=== PATIENT | female | born 2005 | race Caucasian/White ===

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

== ENCOUNTER → 2025-01-10 | Outpatient (CLI) | payer OTHER, SELFPAY ==
[2025-01-13 01:07] LABS: Calprotectin, Stool 44 ug/g (0-120); Fats, Neutral Normal (.); Fats, Total Increased (.)
[2025-01-13 13:08] LABS: Pancreatic Elastase, Fecal 797 (>200)
== END | disposition home or self-care (01) ==
LOC: LABSPEC 13:07
PROVIDERS: Referring Provider Internal Medicine Gastroenterology; Visit Provider Internal Medicine Gastroenterology
DX: R19.7 Diarrhea, unspecified (principal); K58.9 Irritable bowel syndrome, unspecified
CPT/HCPCS: 82274; 82653; 82705; 83630; 83993; 87177; 87209; 87329; 87506

== ENCOUNTER → 2025-01-18 | Outpatient (CLI) | payer OTHER, SELFPAY ==
--- NOTE | 2025-01-18 12:56 | NM_ITS ---
PROCEDURE: GASTRIC EMPTYING STUDY 01/18/2025 REASON FOR EXAM: DIARRHEA AND BLOATING TECHNIQUE: The patient ingested a standard meal of oatmeal, sulfur colloid and water. There was no vomiting postprandially. Anterior and posterior planar images of the upper abdomen were obtained for 1 minute immediately following the meal at 1h, 2h and 4h if more than 10% of the activity persisted within the stomach. Regions of interest were drawn, and a geometric mean was used to calculate a [id number]. RADIOPHARMACEUTICAL: Sulfur colloid DOSE 1.1mCi FINDINGS: Percent activity remaining in stomach: 1 hour 35 % (normal 37-90%) NM/Gastric Emptying Study IMPRESSION: Normal gastric emptying. Reading Location: [facility]
--- NOTE | 2025-01-18 12:56 | NM_ITS ---
PROCEDURE: GASTRIC EMPTYING STUDY 01/18/2025 REASON FOR EXAM: DIARRHEA AND BLOATING TECHNIQUE: The patient ingested a standard meal of oatmeal, sulfur colloid and water. There was no vomiting postprandially. Anterior and posterior planar images of the upper abdomen were obtained for 1 minute immediately following the meal at 1h, 2h and 4h if more than 10% of the activity persisted within the stomach. Regions of interest were drawn, and a geometric mean was used to calculate a [id number]. RADIOPHARMACEUTICAL: Sulfur colloid DOSE 1.1mCi FINDINGS: Percent activity remaining in stomach: 1 hour 35 % (normal 37-90%) NM/Gastric Emptying Study IMPRESSION: Normal gastric emptying. Reading Location: [facility]
--- OUTSIDE RECORDS SUMMARY | 2025-01-18 21:31 | XMS RPT_ITS | CCD ---
Author Organization [facility] Care Team Providers Care Vehicle Modification Technician Name Role Phone Friend Dr. Dennis BECKFORD Attending Provider Care Physician, No Primary Primary Care Provider Unavailable Friend Dr. Dennis BECKFORD Referring Provider Friend, Dennis Attending Unavailable Care Physician, No Primary Primary Care Unava ilable Friend, Dennis Referring Unavailable Friend, Dennis Attending Unavailable Care Physician, No Primary Primary Care Unava ilable Friend, Dennis Referring Unavailable Friend, Dennis Attending Unavailable Allergies Allergy Classification Reported Allergen(s) Allergy Type Date of Onset Reaction(s) Facility (2 sources) avocado allergenic extract Drug Allergy 12-30-[address] [facility] (2 sources) Sulfamethoxazole Drug Allergy 12-30-19 [facility] (2 sources) Sulfonamides (Antibiotic) Propensity to adverse reactions 12-30-19 [facility] (2 sources) Trimethoprim Drug Allergy 12-30-19 [facility] (3 sources) cat dander; Translations: [cat dander] Propensity to adverse reactions 12-30-[address] [facility] (3 sources) Environmental Allergies: Uncoded; Translations: [Environmental Allergies: Uncoded] Propensity to adverse reactions 12-30-[address] [facility] (1 source) avocado oil Drug Allergy 12-30-[address] [facility] (1 source) Sulfamethoxazole Drug Allergy 12-30-[address] [facility] (1 source) Sulfonamides (Antibiotic) Drug allergy (disorder) 12-30-[address] [facility] (1 source) Trimethoprim Drug Allergy 12-30-[address] [facility] Medications Current Medications Medication Drug Class(es) Dates Sig (Normalized) Sig (Original) atomoxetine 18 mg oral capsule (2 sources) Norepinephrine Reuptake Inhibitor Start: 12-29-2024 take 1 capsule by mouth once daily Atomoxetine (Strattera) 18 mg capsule Active 18 mg PO daily December 29, 2024 12:00am control (2 sources) Start: 12-29-2024 control Active PO December 29, 2024 12:00am busPIRone hydrochloride 15 mg oral tablet (2 sources) Start: 12-29-2024 take 1 tablet by mouth once daily Buspirone 15 mg tablet Active 15 mg PO DAILY December 29, 2024 12:00am cloNIDine hydrochloride 0.2 mg oral tablet (2 sources) Central alpha-2 Adrenergic Agonist Start: 12-29-2024 take 1 tablet by mouth twice daily Clonidine Hcl 0.2 mg tablet Active 0.2 mg PO TWICE A DAY December 29, 2024 12:00am 24 hr levomilnacipran 120 mg extended release oral capsule (2 sources) Serotonin and Norepinephrine Reuptake Inhibitor Start: 12-29-2024 take 1 capsule by mouth once daily Levomilnacipran (Fetzima) 120 mg capsule,extended release 24 hr Active 120 mg PO daily December 29, 2024 12:00am melatonin 10 mg oral capsule (2 sources) Start: 12-29-2024 take 1 capsule by mouth at bedtime Melatonin 10 mg capsule Active 10 mg PO BEDTIME December 29, 2024 12:00am metFORMIN hydrochloride 500 mg oral tablet (2 sources) Biguanide Start: 12-29-2024 take 1 tablet by mouth four times daily Metformin 500 mg tablet Active 500 mg PO .QID December 29, 2024 12:00am spironolactone 100 mg oral tablet (2 sources) Aldosterone Antagonist Start: 12-29-2024 take 1 tablet by mouth once daily Spironolactone 100 mg tablet Active 100 mg PO daily December 29, 2024 12:00am Problems Problem Classification Problem Date Documented Da te Episodic/Chronic Other gastrointestinal disorders (4 sources) Diarrhea; Translations: [Diarrhea, unspecified] 12-29-2024 Episodic Other gastrointestinal disorders (1 source) Diarrhea, unspecified; Translations: [Diarrhea, unspecified] Onset: 01-13-2025 Episodic Results Test Name Value Interpretation Reference Range Facility Calprotectin, Stoolon [address] 44 ug/g Normal 0-[address] [facility] Comment on above: Order Comment: Test( s) [id number], Neutral; [id number]-Bksp, Total was developed and its performance characteristics determined by [facility]. It has not been cleared or approved by the Food and Drug Administration. Result Comment: Conc entration Interpretation Follow-Up < 5 - 50 ug/g Normal None >50 -120 ug/g Borderline Re-evaluate in 4-6 weeks >120 ug/g Abnormal Repeat as clinically indicated Performed at: [facility] [address] [id number] Operations Supervisor 2Nd Shift: Johnnie Brown PhD, Phone: [phone] Performed at: [facility] Lab[address] [id number] Operations Supervisor 2Nd Shift: Joslyn Sahu MD, Phone: [phone] Performed By: #### L 7000.0750, M100.0605, L7000.0300, L7000.0700, M100.7900, M100.637 #### [facility] [address] [place], [place], [id number] Fecal Fat, Qualitativeon FATS, NEUTRAL Normal Normal . [facility] Comment on above: Order Comment: Test( s) [id number]-Zxbe, Neutral; 192452-Twjz, Total was developed and its performance characteristics determined by [facility]. It has not been cleared or approved by the Food and Drug Administration. Result Comment: Norm al (<60 Droplets/HPF) Performed By: #### L 7000.0750, M100.0605, L7000.0300, L7000.0700, M100.7900, M100.637 #### [facility] [address] [place], [place], [address] FATS, TOTAL Increased Normal . [facility] Comment on above: Order Comment: Test( s) [id number]-Rtvc, Neutral; 307180-Xoxn, Total was developed and its performance characteristics determined by [facility]. It has not been cleared or approved by the Food and Drug Administration. Result Comment: Norm al (<100 Droplets/HPF) Performed By: #### L 7000.0750, M100.0605, L7000.0300, L7000.0700, M100.7900, M100.637 #### [facility] [address] [place], [place], [id number] [phone] L7000.0750on 01-13-2025 P ELASTASE,FECA 797 Normal >[address] [facility] Comment on above: Result Comment: Resu lt Units: ug Elast./g Severe Pancreatic Insufficiency: <100 Moderate Pancreatic Insufficiency: 100 - 200 Normal: >200 Performed at: - [address] [id number] Operations Supervisor 2Nd Shift: Joslyn Sahu MD, Phone: [phone] Performed By: #### L 7000.0750, M100.0605, L7000.0300, L7000.0700, M100.7900, M100.637 #### [facility] [address] [place], [place], [id number] ANCAon 01-10-2025 Atypical pANCA <1:20 Normal Neg:<1:[address] [facility] Comment on above: Result Comment: The atypical pANCA pattern has been observed in a significant percentage of patients with ulcerative colitis, primary sclerosing cholangitis and autoimmune hepatitis. Performed By: #### L 7000.0750, M100.0605, L7000.0300, L7000.0700, M100.7900, M100.637 #### [facility] [address] [place], [place], [id number] Cytoplasmic Ab <1:20 Normal Neg:<1:[address] [facility] Comment on above: Performed By: #### L 7000.0750, M100.0605, L7000.0300, L7000.0700, M100.7900, M100.637 #### [facility] [address] [place], [place], [id number] Perinuclear Ab. <1:20 Normal Neg:<1:[address] [facility] Comment on above: Result Comment: The presence of positive fluorescence exhibiting P-ANCA or C-ANCA patterns alone is not specific for the diagnosis of Marie's Granulomatosis (WG) or microscopic polyangiitis. Decisions about treatment should not be based solely on ANCA IFA results. The International ANCA Group Consensus recommends follow up testing of positive sera with both KS- 3 and MPO-ANCA enzyme immunoassays. As many as 5% serum samples are positive only by EIA. Ref. AM J Clin Pathol 1999;111:507-513. Performed By: #### L 7000.0750, M100.0605, L7000.0300, L7000.0700, M100.7900, M100.637 #### [facility] [address] [place], [address] Angiotensin Convert Enzymeon 01-10-2025 ANGIOT-CONV.ENZ 34 U/L Normal 14-[address] [facility] Comment on above: Result Comment: Perf ormed at: - [facility] [address] [id number] Operations Supervisor 2Nd Shift: Johnnie Brown PhD, Phone: [phone] Performed at: - [facility] [address] [id number] Operations Supervisor 2Nd Shift: Joslyn Sahu MD, Phone: [phone] Performed By: #### L 7000.0750, M100.0605, L7000.0300, L7000.0700, M100.7900, M100.637 #### [facility] [address] [place], [address] Anti-Smooth Muscle ABSon ANTISMOOTH MUSC 5 Units Normal 0-[address] [facility] Comment on above: Result Comment: Nega tive 0 - 19 Weak positive 20 - 30 Moderate to strong positive >30 Actin Antibodies are found in 52-85% of patients with autoimmune hepatitis or chronic active hepatitis and in 22% of patients with primary biliary cirrhosis. Performed By: #### L 7000.0750, M100.0605, L7000.0300, L7000.0700, M100.7900, M100.637 #### [facility] [address] [place], [address] Calprotectin stoolOrdered By : Dennis Mcneil on 01-10-2025 Calprotectin stool 44 ug/g 0-120 [facility] Comment on above: Concentration Interp retation Follow-Up< 5 - 50 ug/g Normal None>50 -120 ug/g Borderline Re-evaluate in 4-6 weeks >120 ug/g Abnormal Repeat as clinically indicatedPerformed at: - [facility] [address] [id number] Director: Johnnie Brown PhD, Phone: [phone] at: [facility] [employer] [id number] Director: Joslyn Sahu MD, Phone: [phone] Celiac Disease Profileon ENDOMYSIAL IGA Negative Normal Negative [facility] Comment on above: Performed By: #### L 7000.0750, M100.0605, L7000.0300, L7000.0700, M100.7900, M100.637 #### [facility] [address] [place], [place], [id number] tTG IGA <2 Normal 0-[address] [facility] Comment on above: Result Comment: Nega tive 0 - 3 Weak Positive 4 - 10 Positive >10 Tissue Transglutaminase (tTG) has been identified as the endomysial antigen. Studies have demonstr- ated that endomysial IgA antibodies have over 99% specificity for gluten sensitive enteropathy. Performed By: #### L 7000.0750, M100.0605, L7000.0300, L7000.0700, M100.7900, M100.637 #### [facility] [address] [place], [place], [id number] ENTERIC PATHOGEN PANEL STOOL on 01-10-2025 EP PANEL Normal Reference Ran ge = Not Detected Nucleic acid amplification test method Not detected for Campylobacter group, Salmonella species, Shigella species, Vibrio Group, Yersinia enterocolitica, EHEC (Shiga Toxin 1, Shiga Toxin 2), Norovirus Gl/Gll, and Rotavirus A. Other common stool pathogens are not detected on this panel include: Aeromonas/Plesiomonas or parasites. Order testing for these organisms separately if suspected. This is an amplified DNA test which makes it both specific and sensitive. CAMPYLOBACTER Not Detected Norovirus Not Detected Rotavirus Not Detected Salmonella Not Detected Shiga Toxin Not Detected Shigella sp. Not Detected VIBRIO Not Detected Yersinia Not Detected Normal [facility] Comment on above: Performed By: #### L 7000.0750, M100.0605, L7000.0300, L7000.0700, M100.7900, M100.637 #### [facility] [address] [place], [address] Fecal fat detectionOrdered B y: Dennis Friend on 01-10-2025 Fat Ql (Stl) Increased . [facility] Comment on above: Normal (<100 Droplet s/HPF) Gastrin, Serumon 01-10-2025 GASTRIN 18 pg/mL Normal 0-[address] [facility] Comment on above: Result Comment: Siem [facility] Immulite 2000 Immunochemiluminometric assay (ICMA) Values obtained with different assay methods or kits cannot be used interchangeably. Results cannot be interpreted as absolute evidence of the presence or absence of malignant disease. Performed By: #### L 7000.0750, M100.0605, L7000.0300, L7000.0700, M100.7900, M100.637 #### [facility] [address] [place], [address] STEPHANIE + Protein Elect, Serumon 01-10-2025 Albumin [Mass/Vol] 3.4 g/dL Normal 2.9-4.4 [facility] Comment on above: Order Comment: N Performed By: #### L 7000.0750, M100.0605, L7000.0300, L7000.0700, M100.7900, M100.637 #### [facility] [address] [place], [address] Albumin/Globulin [Mass ratio] 0.9 {ratio} Normal 0.7-1.[address] [facility] Comment on above: Order Comment: N Performed By: #### L 7000.0750, M100.0605, L7000.0300, L7000.0700, M100.7900, M100.637 #### [facility] [address] [place], [address] VWQPB-1-FBWM 0.4 g/dL Normal 0.0-0.[address] [facility] Comment on above: Order Comment: N Performed By: #### L 7000.0750, M100.0605, L7000.0300, L7000.0700, M100.7900, M100.637 #### [facility] [address] [place], [address] HVDDL-7-YHVP 1.1 g/dL High 0.4-1.[address] [facility] Comment on above: Order Comment: N Performed By: #### L 7000.0750, M100.0605, L7000.0300, L7000.0700, M100.7900, M100.637 #### [facility] [address] [place], [address] BETA GLOBULIN 1.5 g/dL High 0.7-1.[address] [facility] Comment on above: Order Comment: N Performed By: #### L 7000.0750, M100.0605, L7000.0300, L7000.0700, M100.7900, M100.637 #### [facility] [address] [place], [address] GAMMA GLOBULIN 1.2 g/dL Normal 0.4-1.[address] [facility] Comment on above: Order Comment: N Performed By: #### L 7000.0750, M100.0605, L7000.0300, L7000.0700, M100.7900, M100.637 #### [facility] [address] [place], [address] Globulin (S) [Mass/Vol] 4.2 g/dL Abnormal 2.2-3.9 [facility] Comment on above: Order Comment: N Performed By: #### L 7000.0750, M100.0605, L7000.0300, L7000.0700, M100.7900, M100.637 #### [facility] [address] [place], [address] STEPHANIE RESULT,S Comment Normal . [facility] Comment on above: Order Comment: N Result Comment: No m onoclonality detected. Performed By: #### L 7000.0750, M100.0605, L7000.0300, L7000.0700, M100.7900, M100.637 #### [facility] [address] [place], [address] IMMUNOGLOB A QN 87 mg/dL Normal 87-[address] [facility] Comment on above: Order Comment: N Performed By: #### L 7000.0750, M100.0605, L7000.0300, L7000.0700, M100.7900, M100.637 #### [facility] [address] [place], [address] IMMUNOGLOB G QN 1231 mg/dL Normal 719-[address] [facility] Comment on above: Order Comment: N Performed By: #### L 7000.0750, M100.0605, L7000.0300, L7000.0700, M100.7900, M100.637 #### [facility] [address] [place], [address] IMMUNOGLOB M QN 52 mg/dL Low 58-[address] [facility] Comment on above: Order Comment: N Performed By: #### L 7000.0750, M100.0605, L7000.0300, L7000.0700, M100.7900, M100.637 #### [facility] [address] [place], [address] M-Matthew Not Observed Normal Not Observed [facility] Comment on above: Order Comment: N Performed By: #### L 7000.0750, M100.0605, L7000.0300, L7000.0700, M100.7900, M100.637 #### [facility] [address] [place], [address] NOTE: Comment Normal . [facility] Comment on above: Order Comment: N Result Comment: Prot ein electrophoresis scan will follow via computer, mail, or deputy commissioner delivery. Performed By: #### L 7000.0750, M100.0605, L7000.0300, L7000.0700, M100.7900, M100.637 #### [facility] [address] [place], [address] Protein [Mass/Vol] 7.6 g/dL Normal 6.0-8.5 [facility] Comment on above: Order Comment: N Performed By: #### L 7000.0750, M100.0605, L7000.0300, L7000.0700, M100.7900, M100.637 #### [facility] [address] [place], [address] Immunoglobulins G/A/M/Jose IMMUNOGLOB E QN 329 IU/mL Normal 6-[address] [facility] Comment on above: Order Comment: N Performed By: #### L 7000.0750, M100.0605, L7000.0300, L7000.0700, M100.7900, M100.637 #### [facility] [address] [place], [address] L2100.0000on 01-10-2025 ACCA 6 units Normal 0-[address] [facility] Comment on above: Result Comment: Nega tive: <80 Equivocal: 80-90 Positive: >90 Performed By: #### L 7000.0750, M100.0605, L7000.0300, L7000.0700, M100.7900, M100.637 #### [facility] [address] [place], [address] ALCA 17 units Normal 0-[address] [facility] Comment on above: Result Comment: Nega tive:<55 Equivocal: 55-60 Positive: >60 Performed By: #### L 7000.0750, M100.0605, L7000.0300, L7000.0700, M100.7900, M100.637 #### [facility] [address] [place], [address] AMCA 32 units Normal 0-[address] [facility] Comment on above: Result Comment: Nega tive: <90 Equivocal: 90-100 Positive: >100 This test was developed and its performance characteristics determined by [facility]. It has not been cleared or approved by the Food and Drug Administration. The FDA has determined that such clearance or approval is not necessary. Performed By: #### L 7000.0750, M100.0605, L7000.0300, L7000.0700, M100.7900, M100.637 #### [facility] [address] [place], [place], [address] Atypical pANCA Negative Normal Negative [facility] Comment on above: Performed By: #### L 7000.0750, M100.0605, L7000.0300, L7000.0700, M100.7900, M100.637 #### [facility] [address] [place], [place], [address] COMMENT Comment Normal . [facility] Comment on above: Result Comment: Abigail susanne is not suggestive of Inflammatory Bowel Disease Performed By: #### L 7000.0750, M100.0605, L7000.0300, L7000.0700, M100.7900, M100.637 #### [facility] [address] [place], [address] Rebeca 7 units Normal 0-[address] [facility] Comment on above: Result Comment: Nega tive: <45 Equivocal: 45-50 Positive: >50 Performed By: #### L 7000.0750, M100.0605, L7000.0300, L7000.0700, M100.7900, M100.637 #### [facility] [address] [place], [address] No Panel InformationOrdered By: Dennis Mcneil on 01-10-2025 Stool Neutral Fats Normal . [facility] Comment on above: Normal (<60 Droplets /HPF) Quantiferon TB-Gold+on 01-10 QFT MITOGEN OCHOA > 10.[address] [facility] Comment on above: Performed By: #### L 7000.0750, M100.0605, L7000.0300, L7000.0700, M100.7900, M100.637 #### [facility] [address] [place], [address] QFT NIL VALUE 0.03 IU/mL Normal . [facility] Comment on above: Performed By: #### L 7000.0750, M100.0605, L7000.0300, L7000.0700, M100.7900, M100.637 #### [facility] [address] [place], [address] QFT TB GOLD+ Comment Normal . [facility] Comment on above: Result Comment: Jeremiah tiFERON-TB Gold Plus is a qualitative indirect test for M tuberculosis infection (including disease) and is intended for use in conjunction with risk assessment, radiography, and other medical and diagnostic evaluations. The QuantiFERON-TB Gold Plus result is determined by subtracting the Nil value from either TB antigen (Ag) value. The Mitogen tube serves as a control for the test. Performed By: #### L 7000.0750, M100.0605, L7000.0300, L7000.0700, M100.7900, M100.637 #### [facility] [address] [place], [address] QFT TB POS CRIT Negative Normal Negative [facility] Comment on above: Result Comment: No r esponse to M tuberculosis antigens detected. Infection with M tuberculosis is unlikely, but high risk individuals should be considered for additional testing (ATS/IDSA/CDC Clinical Practice Guidelines, 2017). The reference range is an Antigen minus Nil result of <0.35 IU/mL. The specimen received for QuantiFERON testing was incubated by the ordering institution. Specific procedures outlined in our Directory of Services and in the package insert for the QuantiFERON Gold (In Tube) test must be followed to enable for proper stimulation of cells for the production of interferon gamma. Chemiluminescence immunoassay methodology Performed By: #### L 7000.0750, M100.0605, L7000.0300, L7000.0700, M100.7900, M100.637 #### [facility] [address] [place], [address] QFT TB1+ AG OCHOA 0.03 IU/mL Normal . [facility] Comment on above: Performed By: #### L 7000.0750, M100.0605, L7000.0300, L7000.0700, M100.7900, M100.637 #### [facility] [address] [place], [address] QFT TB2+ AG OCHOA 0.02 IU/mL Normal . [facility] Comment on above: Performed By: #### L 7000.0750, M100.0605, L7000.0300, L7000.0700, M100.7900, M100.637 #### [facility] [address] [place], [place], [address] Stool Lactoferrin/WBCon 07-0 WBCST Normal Reference Ran ge = Negative Fecal WBC Lactoferrin Negative: No Fecal WBC Lactoferrin present Normal [facility] Comment on above: Performed By: #### L 7000.0750, M100.0605, L7000.0300, L7000.0700, M100.7900, M100.637 #### [facility] [address] [place], [address] Stool Occult Blood iFOBon STOB Negative Normal [facility] Comment on above: Performed By: #### L 7000.0750, M100.0605, L7000.0300, L7000.0700, M100.7900, M100.637 #### [facility] [address] [place], [address] Stool gastrointestinal hemog lobin detection by immunologic methodOrdered By: Dennis Mcneil on 01-10-2025 Lower GI hemoglobin IA Ql (Stl) [facility] Stool lactoferrin detection by immunoassayOrdered By: Dennis Mcneil on 01-10-2025 Lactoferrin IA Ql (Stl) [facility] Stool pancreatic elastase me asurement (mass/mass)Ordered By: Dennis Mcneil on 01-10-2025 Elastase.pancreatic (Stl) [Mass/Mass] 797 >[address] [facility] Comment on above: Result Units: ug Milli st./g Severe Pancreatic Insufficiency: <100 Moderate Pancreatic Insufficiency: 100 - 200 Normal: >200Performed at: BN - [facility] [address] [id number] Director: Joslyn Sahu MD, Phone: [phone] MARY Comprehensive Panelon ANTI-DNA (DS)AB 1 IU/mL Normal 0-[address] [facility] Comment on above: Result Comment: Nega tive <5 Equivocal 5 - 9 Positive >9 Performed By: #### L 101.9900, L5500.0410, L3300.1800, L501.6710, L3100.3425, L3400.8000, L503.6150, L501.9985, L503.6550, L3300.1200, L3200.1100, L100.0100, L504.2610, L3410.2400, L803.2200, L500.4050, L2100.0000, L501.9520, L3100.5440, L3100.6900 #### [facility] [address] [place], [place], [id number] ANTI-SS-A < 0.2 Normal 0.0-0.[address] [facility] Comment on above: Performed By: #### L 101.9900, L5500.0410, L3300.1800, L501.6710, L3100.3425, L3400.8000, L503.6150, L501.9985, L503.6550, L3300.1200, L3200.1100, L100.0100, L504.2610, L3410.2400, L803.2200, L500.4050, L2100.0000, L501.9520, L3100.5440, L3100.6900 #### [facility] [address] [place], [address] ANTI-SS-B < 0.2 Normal 0.0-0.[address] [facility] Comment on above: Performed By: #### L 101.9900, L5500.0410, L3300.1800, L501.6710, L3100.3425, L3400.8000, L503.6150, L501.9985, L503.6550, L3300.1200, L3200.1100, L100.0100, L504.2610, L3410.2400, L803.2200, L500.4050, L2100.0000, L501.9520, L3100.5440, L3100.6900 #### [facility] [address] [place], [place], [id number] Allergen, Food Profileon CLAM <0.10 Normal Class [address] [facility] Comment on above: Performed By: #### L 7000.0750, M100.0605, L7000.0300, L7000.0700, M100.7900, M100.637 #### [facility] [address] [place], [place], [address] CODFISH <0.10 Normal Class [address] [facility] Comment on above: Performed By: #### L 7000.0750, M100.0605, L7000.0300, L7000.0700, M100.7900, M100.637 #### [facility] [address] [place], [place], [id number] COMMENT Comment Normal . [facility] Comment on above: Result Comment: Kristofer bush of Specific IgE Class Description of Class ----- < 0.10 0 Negative 0.10 - 0.31 0/I Equivocal/Low 0.32 - 0.55 I Low 0.56 - 1.40 II Moderate 1.41 - 3.90 III High 3.91 - 19.00 IV Very High 19.01 - 100.00 V Very High >100.00 Very High Performed By: #### L 7000.0750, M100.0605, L7000.0300, L7000.0700, M100.7900, M100.637 #### [facility] [address] [place], [place], [id number] CORN <0.10 Normal Class [address] [facility] Comment on above: Performed By: #### L 7000.0750, M100.0605, L7000.0300, L7000.0700, M100.7900, M100.637 #### [facility] [address] [place], [address] EGG, WHITE <0.10 Normal Class [address] [facility] Comment on above: Performed By: #### L 7000.0750, M100.0605, L7000.0300, L7000.0700, M100.7900, M100.637 #### [facility] [address] [place], [place], [id number] MILK (COW) <0.10 Normal Class [address] [facility] Comment on above: Performed By: #### L 7000.0750, M100.0605, L7000.0300, L7000.0700, M100.7900, M100.637 #### [facility] [address] [place], [place], [id number] PEANUT 0.16 kU/L Abnormal Class 0/I [facility] Comment on above: Performed By: #### L 7000.0750, M100.0605, L7000.0300, L7000.0700, M100.7900, M100.637 #### [facility] [address] [place], [place], [id number] SCALLOP <0.10 Normal Class [address] [facility] Comment on above: Performed By: #### L 7000.0750, M100.0605, L7000.0300, L7000.0700, M100.7900, M100.637 #### [facility] [address] [place], [place], [id number] SESAME SEED <0.10 Normal Class [address] [facility] Comment on above: Result Comment: Perf ormed at: [facility] [address] [id number] Operations Supervisor 2Nd Shift: Johnnie Brown PhD, Phone: [phone] Performed at: [facility] [address] [id number] Operations Supervisor 2Nd Shift: Joslyn Sahu MD, Phone: [phone] Performed By: #### L 7000.0750, M100.0605, L7000.0300, L7000.0700, M100.7900, M100.637 #### [facility] [address] [place], [place], [id number] SHRIMP <0.10 Normal Class [address] [facility] Comment on above: Performed By: #### L 7000.0750, M100.0605, L7000.0300, L7000.0700, M100.7900, M100.637 #### [facility] [address] [place], [place], [id number] SOYBEAN <0.10 Normal Class [address] [facility] Comment on above: Performed By: #### L 7000.0750, M100.0605, L7000.0300, L7000.0700, M100.7900, M100.637 #### [facility] [address] [place], [place], [id number] WALNUT,(Food) <0.10 Normal Class [address] [facility] Comment on above: Performed By: #### L 7000.0750, M100.0605, L7000.0300, L7000.0700, M100.7900, M100.637 #### [facility] [address] [place], [address] WHEAT <0.10 Normal Class [address] [facility] Comment on above: Performed By: #### L 7000.0750, M100.0605, L7000.0300, L7000.0700, M100.7900, M100.637 #### [facility] [address] [place], [place], [id number] Absolute lymphocyte countOrd ered By: Dennis Mcneil on 12-29-2024 Lymphocytes Auto (Unsp spec) [#/Vol] 4.51 10*3/uL 0.83-4.[address] [facility] Absolute neutrophil countOrd ered By: Dennis Mcneil on 12-29-2024 Neutrophils (Bld) [#/Vol] 9.3 10*3/uL High 2.0-7.[address] [facility] Albumin Elph [Mass/Vol]Order ed By: Dennis Mcneil on 12-29-2024 Albumin [Mass/Vol] 3.4 g/dL 2.9-4.4 [facility] Anion gap in Serum or Plasma Ordered By: Dennis Mcneil on 12-29-2024 Anion gap [Moles/Vol] 15 mmol/L 5- [facility] Automated lymphocyte count a s percentage of total leukocytesOrdered By: Dennis Mcneil on 12-29-2024 Lymphocytes/100 WBC Auto (Unsp spec) 30.9 % - [facility] BUN/creatinine ratioOrdered By: Dennissarah Mcneil on 12-29-2024 Urea nitrogen/Creatinine [Mass ratio] 15.5 mg/mg 10- [facility] Basophil percentageOrdered B y: Dennis Mcneil on 12-29-2024 Basophils/100 WBC (Bld) 0.3 % 0-1 [facility] Bilirubin, totalOrdered By: Dennisfranklin Mcneil on 12-29-2024 Bilirubin [Mass/Vol] 0.32 mg/dL 0.00-1.30 [facility] CBC W/Diff, Automatedon 12-06 ATYPICAL LYMPH 1+ Normal [facility] Comment on above: Performed By: #### L 101.9900, L5500.0410, L3300.1800, L501.6710, L3100.3425, L3400.8000, L503.6150, L501.9985, L503.6550, L3300.1200, L3200.1100, L100.0100, L504.2610, L3410.2400, L803.2200, L500.4050, L2100.0000, L501.9520, L3100.5440, L3100.6900 #### [facility] [address] [place], [address] PLT EST SLT INC Normal ADEQ [facility] Comment on above: Performed By: #### L 101.9900, L5500.0410, L3300.1800, L501.6710, L3100.3425, L3400.8000, L503.6150, L501.9985, L503.6550, L3300.1200, L3200.1100, L100.0100, L504.2610, L3410.2400, L803.2200, L500.4050, L2100.0000, L501.9520, L3100.5440, L3100.6900 #### [facility] [address] [place], [address] CRPon 12-29-2024 C-REACTIVE PROT 34.60 mg/L High 0.0-3.[address] [facility] Comment on above: Performed By: #### L 7000.0750, M100.0605, L7000.0300, L7000.0700, M100.7900, M100.637 #### [facility] [address] [facility] [address] [place], [place], [id number] Carbon dioxide, total [Moles /volume] in Central venous bloodOrdered By: Dennis Mcneil on 12-29-2024 CO2 [Moles/Vol] 20.3 mmol/L Low 21.0-32.[address] [facility] Chitobioside IgA antibody as sayOrdered By: Dennis Mcneil on 12-29-2024 Chitobioside IgA IA Qn 6 units 0-90 [facility] Comment on above: Negative: <80 Equivo padma: 80-90 Positive: >90 Chloride assayOrdered By: Ra franklin Mcneil on 12-29-2024 Chloride [Moles/Vol] 101 mmol/L 98-108 [facility] Comprehensive Metabolic Prof ilon 12-29-2024 Albumin [Mass/Vol] 4.2 g/dL Normal 3.5-5.0 [facility] Comment on above: Performed By: #### L 7000.0750, M100.0605, L7000.0300, L7000.0700, M100.7900, M100.637 #### [facility] [address] [place], [address] Albumin/Globulin [Mass ratio] 1.1 {ratio} Normal 0.9-2.[address] [facility] Comment on above: Performed By: #### L 7000.0750, M100.0605, L7000.0300, L7000.0700, M100.7900, M100.637 #### [facility] [address] [place], [address] ALK PHOS 172 U/L High 35-[address] [facility] Comment on above: Performed By: #### L 7000.0750, M100.0605, L7000.0300, L7000.0700, M100.7900, M100.637 #### [facility] [address] [place], [address] ALT [Catalytic activity/Vol] 13 U/L Normal <=[address] [facility] Comment on above: Performed By: #### L 7000.0750, M100.0605, L7000.0300, L7000.0700, M100.7900, M100.637 #### [facility] [address] [place], [address] AST [Catalytic activity/Vol] 18 U/L Normal <=[address] [facility] Comment on above: Performed By: #### L 7000.0750, M100.0605, L7000.0300, L7000.0700, M100.7900, M100.637 #### [facility] [address] [place], [address] Bilirubin [Mass/Vol] 0.32 mg/dL Normal 0.00-1.30 [facility] Comment on above: Performed By: #### L 7000.0750, M100.0605, L7000.0300, L7000.0700, M100.7900, M100.637 #### [facility] [address] [place], [address] BUN/CRE 15.5 RATIO Normal 10-[address] [facility] Comment on above: Performed By: #### L 7000.0750, M100.0605, L7000.0300, L7000.0700, M100.7900, M100.637 #### [facility] [address] [place], [address] Calcium [Mass/Vol] 10.0 mg/dL Normal 7.6-11.0 [facility] Comment on above: Performed By: #### L 7000.0750, M100.0605, L7000.0300, L7000.0700, M100.7900, M100.637 #### [facility] [address] [place], [address] Chloride [Moles/Vol] 101 mmol/L Normal 98-108 [facility] Comment on above: Performed By: #### L 7000.0750, M100.0605, L7000.0300, L7000.0700, M100.7900, M100.637 #### [facility] [address] [place], [address] CO2 [Moles/Vol] 20.3 mmol/L Low 21.0-32.[address] [facility] Comment on above: Performed By: #### L 7000.0750, M100.0605, L7000.0300, L7000.0700, M100.7900, M100.637 #### [facility] [address] [place], [address] Creatinine [Mass/Vol] 0.87 mg/dL Normal 0.70-1.20 [facility] Comment on above: Performed By: #### L 7000.0750, M100.0605, L7000.0300, L7000.0700, M100.7900, M100.637 #### [facility] [address] [place], [address] GAP 15 Normal 5-[address] [facility] Comment on above: Performed By: #### L 7000.0750, M100.0605, L7000.0300, L7000.0700, M100.7900, M100.637 #### [facility] [address] [place], [address] GFR/1.73 sq M.predicted among non-blacks MDRD (S/P/Bld) [Vol rate/Area] 99 mL/min/{1.73_m2} Normal >60 [facility] Comment on above: Result Comment: mL/m in/1.73m2 CKD-EPI Creatinine Equation (2020) Performed By: #### L 7000.0750, M100.0605, L7000.0300, L7000.0700, M100.7900, M100.637 #### [facility] [address] [place], [address] Globulin (S) [Mass/Vol] 4.0 g/dL Normal 2.2-4.2 [facility] Comment on above: Performed By: #### L 7000.0750, M100.0605, L7000.0300, L7000.0700, M100.7900, M100.637 #### [facility] [address] [place], [address] Glucose [Mass/Vol] 101 mg/dL High 70-99 [facility] Comment on above: Performed By: #### L 7000.0750, M100.0605, L7000.0300, L7000.0700, M100.7900, M100.637 #### [facility] [address] [place], [address] Potassium [Moles/Vol] 4.0 mmol/L Normal 3.3-5.1 [facility] Comment on above: Performed By: #### L 7000.0750, M100.0605, L7000.0300, L7000.0700, M100.7900, M100.637 #### [facility] [address] [place], [address] Sodium [Moles/Vol] 136 mmol/L Normal 133-145 [facility] Comment on above: Performed By: #### L 7000.0750, M100.0605, L7000.0300, L7000.0700, M100.7900, M100.637 #### [facility] [address] [place], [address] T PROT 8.2 g/dL Normal 5.9-8.[address] [facility] Comment on above: Performed By: #### L 7000.0750, M100.0605, L7000.0300, L7000.0700, M100.7900, M100.637 #### [facility] [address] [place], [address] Urea nitrogen [Mass/Vol] 14 mg/dL Normal 4-[address] [facility] Comment on above: Performed By: #### L 7000.0750, M100.0605, L7000.0300, L7000.0700, M100.7900, M100.637 #### [facility] [address] [place], [address] Eosinophil percentageOrdered By: Dennis Friend on 12-29-2024 Eosinophils/100 WBC (Bld) 0.3 % 0-[address] [facility] Erythrocyte Sed Rateon 12-29 SED RATE 45 mm/hr High 0-[address] [facility] Comment on above: Performed By: #### L 101.9900, L5500.0410, L3300.1800, L501.6710, L3100.3425, L3400.8000, L503.6150, L501.9985, L503.6550, L3300.1200, L3200.1100, L100.0100, L504.2610, L3410.2400, L803.2200, L500.4050, L2100.0000, L501.9520, L3100.5440, L3100.6900 #### [facility] [address] [place], [place], [id number] Erythrocyte distribution wid th ratioOrdered By: Dennis Friend on 12-29-2024 Erythrocyte distribution width (RBC) [Ratio] 13.3 % 11.6-14.[address] [facility] Erythrocyte distribution wid th standard deviationOrdered By: Dennis Friend on 12-29-2024 Erythrocyte distribution width (RBC) [Ratio] 39.5 fl 35.1-43.[address] [facility] Erythrocyte sedimentation ra teOrdered By: Dennis Friend on 12-29-2024 ESR (Bld) [Velocity] 45 mm/h High 0-30 [facility] Ferritinon 12-29-2024 Ferritin [Mass/Vol] 67 ng/mL Normal 22-378 [facility] Comment on above: Performed By: #### L 7000.0750, M100.0605, L7000.0300, L7000.0700, M100.7900, M100.637 #### [facility] [address] [place], [place], [address] Gastrin, serumOrdered By: Ra reid Friend on 12-29-2024 Gastrin [Mass/Vol] 18 pg/mL 0-115 [facility] Comment on above: Siemens Immulite 200 0 Immunochemiluminometric assay (ICMA)Values obtained with different assay methods or kits cannotbe used interchangeably. Results cannot be interpreted asabsolute evidence of the presence or absence of malignantdisease. Gastroenterology Visit Repor ton 12-29-2024 Gastroenterology Visit Report [facility] [address] [place] [address] OFFICE VISIT Date of Service: 12/29/24 MR#: [id number] Acct: [id number] Name: JEWEL SALAZAR ([facility]) Rep #: [id number] : 2005 Provider: Dennis Mcneil, Age/Sex: 19/F Location: [facility] Status: Signed Intake Intake Visit Reasons: DIARRHEA ABDOMINAL PAIN CONSTIPATION Allergies avocado Adverse Reaction (Unknown, Verified 12/29/24 08:54) Swelling cat dander (cats) Adverse Reaction (Unknown, Verified 12/29/24 08:54) Itching Environmental Allergies: Uncoded (seasonal) Adverse Reaction (Unknown, Verified 12/29/24 08:54) Other Sulfa (Sulfonamide Antibiotics) (sulfa drugs) Adverse Reaction (Unknown, Verified 12/29/24 08:54) Hives sulfamethoxazole (From Bactrim) Adverse Reaction (Unknown, Verified 12/29/24 08:54) Hives trimethoprim (From Bactrim) Adverse Reaction (Unknown, Verified 12/29/24 08:54) Hives Medications ???Medication ???Instructions ???Recorded ???Confirmed ???Type atomoxetine 18 mg capsule 18 mg PO QDAY 12/29/24 12/29/24 Hi story (Strattera) control PO 12/29/24 12/29/24 History buspirone 15 mg tablet 15 mg PO DAILY 12/29/24 12/29/24 H istory clonidine HCl 0.2 mg tablet 0.2 mg PO BID 12/29/24 12/29/24 Hi story levomilnacipran 120 mg capsule,24 120 mg PO QDAY 12/29/24 12/29/24 History hr,extended release (Fetzima) melatonin 10 mg capsule 10 mg PO HS 12/29/24 12/29/24 Hist ory metformin 500 mg tablet 500 mg PO .QID 12/29/24 12/29/24 H istory spironolactone 100 mg tablet 100 mg PO QDAY 12/29/24 12/29/24 H istory PFSH Medical History (Updated 12/29/24 @ 09:01 by Sammi Aguilar) Seasonal allergies Polycystic ovaries Hx of migraine headaches Gallstones Anemia Surgical History (Updated 12/29/24 @ 09:01 by Sammi Aguilar) Hx of cholecystectomy Family History (Updated 12/29/24 @ 09:04 by Sammi Aguilar) Other Alcoholism Anxiety Asthma Breast cancer CVA (cerebral vascular accident) Cancer Depression Diabetes Hypertension Mental disorder Suicide attempt Social History (Updated 12/29/24 @ 09:01 by Sammi Aguilar) Smoking Status: Never smoker alcohol intake: never substance use type: does not use what type of physical activity do you participate in: none HPI HPI Details: JEWEL SALAZAR (BLU), is a 19 F who presents to the office today for initial consult. *BGI established 6.25.25 pt presents with 2 year history of alternating diarrhea and constipation. Pt reports abdominal pain and cramping after eating sometimes, but cannot identify a pattern. Pt states that diet soda causes more diarrhea. She has a past medical history of ADHD on Strattera and Fetzima. She also has a possible past medical history of PCOS on metformin and spironolactone. She takes melatonin at night to sleep. She also takes buspirone. She is status postcholecystectomy. There are no signs and symptoms of fecal incontinence or impaction. She has not had any accidents but has had to get up in the middle night to go to the bathroom. She cannot associate it with any particular type of food. She did have a lot of diarrhea after removing her gallbladder but subsequently that got better. She did have a colonoscopy in the past for lower GI bleeding but she does not know if they talked about her rectal tone. She does consume caffeinated products and sugary drinks on occasion. She just graduated from high school and is going off to college in [place]. She has had well wart before. Nobody else in her family is having a problem. Her diarrhea has been going on over 2 to 3 years. She has never had a CAT scan abdomen and pelvis. She denied any fatty stools. She denied any family history of inflammatory bowel disease. She denied any antibiotic exposure within the last 6 months. ROS Const Constitutional: Positive for fatigue, headache(s) and weight change (loss and gain); No fever(s) ENT ENT: Positive for headache(s); No difficulty swallowing Cardio Cardiology: Positive for leg pain with exertion Gastro GI: Positive for abdominal pain, bloating, change in bowel habits, constipation, diarrhea, excessive flatus and nausea/dyspepsia; No belching, change in stool character, coffee ground emesis, cramping, heartburn, difficulty swallowing, feeling full early, incontinent of stools, Vomiting blood/hematemesis, Blood in stool, l oose stools, Black,tarry stools, pain with swallowing, vomiting or other Musc Musculoskeletal: Positive for joint pain, back pain, stiffness and leg pain with exertion Skin Skin: Positive for dry skin, itchy eyes and rash; No yellowing of the eye Neuro Neurology: Positive for headache(s) Psych Psychiatric: Positive for anxiety, Positive for depression, Positive for hyperactivity and Positive for inattentivene (more content not included)... Normal [facility] Glomerular filtration rate ( GFR) estimation/1.73 sq m using serum, plasma, or whole bOrdered By: Dennis Mcneil on 12-29-2024 GFR/1.73 sq M.predicted among non-blacks MDRD (S/P/Bld) [Vol rate/Area] 99 mL/min/{1.73_m2} >60 [facility] Comment on above: mL/min/1.73m2 CKD-EP I Creatinine Equation (2020) Hematocrit Auto (Bld) [Volum e fraction]Ordered By: Dennis Mcneil on 12-29-2024 Hematocrit (Bld) [Volume fraction] 36.9 % Low 37-[address] [facility] Hemoglobin A1con 12-29-2024 HbA1c (Bld) [Mass fraction] 6.3 % High <=5.[address] [facility] Comment on above: Result Comment: Norm al < 5.7 % Prediabetic 5.7 - 6.4 % Diabetic >or= 6.5 % Please note range changes. Performed By: #### L 101.9900, L5500.0410, L3300.1800, L501.6710, L3100.3425, L3400.8000, L503.6150, L501.9985, L503.6550, L3300.1200, L3200.1100, L100.0100, L504.2610, L3410.2400, L803.2200, L500.4050, L2100.0000, L501.9520, L3100.5440, L3100.6900 #### [facility] [address] [place], [place], [id number] Hemoglobin A1c percentageOrd ered By: Dennis Mcneil on 12-29-2024 HbA1c (Bld) [Mass fraction] 6.3 % High <5.[address] [facility] Comment on above: Normal < 5.7 % Predi abetic 5.7 - 6.4 % Diabetic >or= 6.5 % Please note range changes. Hemoglobin measurementOrdere d By: Dennis Mcneil on 12-29-2024 Hemoglobin (Bld) [Mass/Vol] 12.2 g/dL 12.0-15.[address] [facility] IgEOrdered By: Dennis Streeter d on 12-29-2024 IgE 329 IU/mL 6-[address] [facility] Immature granulocytes/100 WB C Auto (Bld)Ordered By: Dennis Mcneil on 12-29-2024 Immature granulocytes/100 WBC (Bld) 0.400 % 0.0-0.[address] [facility] Comment on above: IG% - Immature Granu locytes (promyelocytes, myelocytes and metamyelocytes) > 1% indicates that a LEFT SHIFT is Present. Interpretation of serum or p lasma protein pattern by immunofixation (narrative resultOrdered By: Dennis Mcneil on 12-29-2024 Protein Fractions Immunofixation Ricardo [Interp] Not Observed g/dL Not Observed [facility] Ironon 12-29-2024 Iron [Mass/Vol] 47 ug/dL Low 50-[address] [facility] Comment on above: Performed By: #### L 7000.0750, M100.0605, L7000.0300, L7000.0700, M100.7900, M100.637 #### [facility] [address] [facility] [place], [address] Iron measurement (mass/mass) Ordered By: Dennis Mcneil on 12-29-2024 Iron (Unsp spec) [Mass/Mass] 47 ug/dL Low 50-[address] [facility] LDHon 12-29-2024 LDH 155 U/L Normal 84-[address] [facility] Comment on above: Order Comment: 1 Performed By: #### L 7000.0750, M100.0605, L7000.0300, L7000.0700, M100.7900, M100.637 #### [facility] [address] [place], [address] Laboratory - Chemistry and C hemistry - challengeOrdered By: Dennis Mcneil on 12-29-2024 AST [Catalytic activity/Vol] 18 U/L <[address] [facility] - Miscellaneous t estsOrdered By: Dennis Mcneil on 12-29-2024 Laboratory comment Ricardo (Report) Comment . [facility] Comment on above: Pattern is not sugge stive of Inflammatory Bowel Disease Service comment (Unsp spec) [Interp] Comment . [facility] Comment on above: Levels of Specific I gE Class Description of Class ----- < 0.10 0 Negative 0.10 - 0.31 0/I Equivocal/Low 0.32 - 0.55 I Low 0.56 - 1.40 II Moderate 1.41 - 3.90 III High 3.91 - 19.00 IV Very High 19.01 - 100.00 V Very High >100.00 Very High Lactate dehydrogenase (LDH) measurementOrdered By: Dennis Mcneil on 12-29-2024 LDH [Catalytic activity/Vol] 155 U/L 84-[address] [facility] Laminaribioside carbohydrate IgG antibody assayOrdered By: Dennis Mcneil on 12-29-2024 Laminaribioside IgG IA Qn 17 units 0-[address] [facility] Comment on above: Negative:<55 Equivoc al: 55-60 Positive: >60 MCV (mean corpuscular volume ) determinationOrdered By: Dennis Mcneil on 12-29-2024 MCV (RBC) [Entitic vol] 81.6 fL 81-99 [facility] Mean corpuscular hemoglobin (MCH) determinationOrdered By: Dennis Mcneil on 12-29-2024 MCH (RBC) [Entitic mass] 27.0 pg 27.0-32.[address] [facility] Mean corpuscular hemoglobin concentration (MCHC) determinationOrdered By: Dennis Mcneil on 12-29-2024 MCHC (RBC) [Mass/Vol] 33.1 g/dL 32-36 [facility] Mean platelet volume determi nationOrdered By: Dennis Mcneil on 12-29-2024 Platelet mean volume (Bld) [Entitic vol] 10.1 fL 6.2-12.[address] [facility] Monocyte percentageOrdered B y: Dennis Mcneil on 12-29-2024 Monocytes/100 WBC (Bld) 4.5 % 0-10 [facility] Neutrophil percentageOrdered By: Dennis Mcneil on 12-29-2024 Neutrophils/100 WBC (Bld) 63.6 % 47-[address] [facility] No Panel InformationOrdered By: Dennis Mcneil on 12-29-2024 Addendum Document Comment . [facility] Comment on above: Protein electrophore sis scan will follow via computer,mail, or deputy commissioner delivery. Nucleated red blood cell per centageOrdered By: Dennis Mcneil on 12-29-2024 Nucleated RBC/100 WBC (Bld) [Ratio] 0 % 0-[address] [facility] Platelet countOrdered By: Ra franklin Mcneil on 12-29-2024 Platelets (Bld) [#/Vol] 476 10*3/uL High 150-[address] [facility] Platelet estimateOrdered By: Dennis Mcneil on 12-29-2024 Platelets LM Ql (Bld) SLT INC ADEQ [facility] Potassium measurement (mass/ volume)Ordered By: Dennis Mcneil on 12-29-2024 Potassium (Unsp spec) [Mass/Vol] 4.0 mmol/L 3.3-5.[address] [facility] Qualitative QuantiFERON-TB g old in tube testOrdered By: Dennis Mcneil on 12-29-2024 M. tuberculosis tuberculin stim IFN-g Ql (Bld) 0.03 IU/mL . [facility] RBC Auto (Bld) [#/Vol]Ordere d By: Dennis Mcneil on 12-29-2024 RBC (Bld) [#/Vol] 4.52 10*6/uL 4.2-5.4 [facility] Serum DNA double strand anti body assay (units/volume)Ordered By: Dennis Mcneil on 12-29-2024 DNA double strand Ab Qn (S) 1 [IU]/mL 0-[address] [facility] Comment on above: Negative <5 Equivoca l 5 - 9 Positive >9 Serum Scl-70 antibody assay (units/volume)Ordered By: Dennis Mcneil on 12-29-2024 SCL-70 extractable nuclear Ab Qn (S) <0.2 AI 0.0-0.[address] [facility] Comment on above: Previous reported re sult: TNP AIEdited by: JASWINDER on 01/01/25:0307 AMENDED REPORT 01/01/25306 ANTISCLER previously reported as: Test not performed Serum black walnut IgE antib aisha assay (units/volume)Ordered By: Dennis Mcneil on 12-29-2024 [place] IgE Qn (S) <0.10 kU/L Class 0 [facility] Serum clam IgE antibody assa y (units/volume)Ordered By: Dennis Mcneil on 12-29-2024 Clam IgE Qn (S) <0.10 kU/L Class [address] [facility] Serum classic neutrophil cyt oplasmic antibody assay (units/volume)Ordered By: Dennis Mcneil on 12-29-2024 Neutrophil cytoplasmic Ab.classic Qn (S) <1:20 titer Neg:<1:[address] [facility] Serum codfish IgE antibody a ssay (units/volume)Ordered By: Dennis Mcneil on 12-29-2024 Codfish IgE Qn (S) <0.10 kU/L Class 0 [facility] Serum corn IgE antibody assa y (units/volume)Ordered By: Dennis Mcneil on 12-29-2024 Chinle IgE Qn (S) <0.10 kU/L Class [address] [facility] Serum cow milk IgE antibody assay (units/volume)Ordered By: Dennis Mcneil on 12-29-2024 Cow milk IgE Qn (S) <0.10 kU/L Class 0 [facility] Serum creatinine measurement (mass/volume)Ordered By: Dennis Mcneil on 12-29-2024 Creatinine [Mass/Vol] 0.87 mg/dL 0.70-1.20 [facility] Serum egg white IgE antibody assay (units/volume)Ordered By: Denins Mcneil on 12-29-2024 Egg white IgE Qn (S) <0.10 kU/L Class 0 [facility] Serum globulin measurementOr dered By: Dennis Mcneil on 12-29-2024 Globulin (S) [Mass/Vol] 4.0 g/dL 2.2-4.2 [facility] Serum globulin measurement ( mass/volume)Ordered By: Dennis Mcneil on 12-29-2024 Globulin (S) [Mass/Vol] 4.2 g/dL High 2.2-3.9 [facility] Serum glucose measurement (m ass/volume)Ordered By: Dennis Mcneil on 12-29-2024 Glucose [Mass/Vol] 101 mg/dL High 70-99 [facility] Serum or plasma C reactive p rotein measurement (mass/volume)Ordered By: Dennis Mcneil on 12-29-2024 CRP [Mass/Vol] 34.60 mg/L High 0.0-3.[address] [facility] Serum or plasma IgA measurem ent (mass/volume)Ordered By: Dennistre Mcneil on 12-29-2024 IgA [Mass/Vol] 87 mg/dL 87-[address] [facility] Serum or plasma IgG measurem ent (mass/volume)Ordered By: Dennis Mcneil on 12-29-2024 IgG [Mass/Vol] 1231 mg/dL 719-[address] [facility] Serum or plasma actin IgG an tibody assay (units/volume)Ordered By: Dennis Mcneil on 12-29-2024 Actin IgG Qn 5 Units 0-[address] [facility] Comment on above: Negative 0 - 19 Weak positive 20 - 30 Moderate to strong positive >30 Actin Antibodies are found in 52-85% of patients with autoimmune hepatitis or chronic active hepatitis and in 22% of patients with primary biliary cirrhosis. Serum or plasma alanine streeter otransferase (ALT) measurementOrdered By: Dennis Mcneil on 12-29-2024 ALT [Catalytic activity/Vol] 13 U/L <[address] [facility] Serum or plasma albumin basil urement (mass/volume)Ordered By: Dennis Mcneil on 12-29-2024 Albumin [Mass/Vol] 4.2 g/dL 3.5-5.0 [facility] Serum or plasma albumin/glob ulin mass ratioOrdered By: Dennis Mcneil on 12-29-2024 Albumin/Globulin [Mass ratio] 1.1 {ratio} 0.9-2.[address] [facility] Serum or plasma alkaline jovanny sphatase measurementOrdered By: Dennis Mcneil on 12-29-2024 ALP [Catalytic activity/Vol] 172 U/L High 35-[address] [facility] Serum or plasma alpha 1 glob ulin measurement by electrophoresis (mass/volume)Ordered By: Dennis Mcneil on 12-29-2024 Alpha 1 globulin Elph [Mass/Vol] 0.4 g/dL 0.0-0.[address] [facility] Alpha 1 globulin Elph [Mass/Vol] 1.1 g/dL High 0.4-1.[address] [facility] Serum or plasma angiotensin converting enzyme measurement (enzymatic activity/volume)Ordered By: Dennis Mcneil on 12-29-2024 Angiotensin converting enzyme [Catalytic activity/Vol] 34 U/L 14-[address] [facility] Comment on above: Performed at: [employer] [facility] [employer] [id number] Director: Johnnie Brown PhD, Phone: [phone] at: [facility] Lab[address] [id number] Director: Joslyn Sahu MD, Phone: [phone] Serum or plasma beta globuli n measurement by electrophoresis (mass/volume)Ordered By: Dennis Mcneil on 12-29-2024 Beta globulin Elph [Mass/Vol] 1.5 g/dL High 0.7-1.[address] [facility] Serum or plasma calcium basil urement (mass/volume)Ordered By: Dennis Mcneil on 12-29-2024 Calcium [Mass/Vol] 10.0 mg/dL 7.6-11.0 [facility] Serum or plasma ferritin marcelo surement (mass/volume)Ordered By: Dennis Mcneil on 12-29-2024 Ferritin [Mass/Vol] 67 ng/mL 22-378 [facility] Serum or plasma gamma globul in measurement by electrophoresis (mass/volume)Ordered By: Dennis Mcneil on 12-29-2024 Gamma globulin Elph [Mass/Vol] 1.2 g/dL 0.4-1.[address] [facility] Serum or plasma immunoelectr ophoresis interpretation (nominal result)Ordered By: Dennis Mcneil on 12-29-2024 Interpretation IEP [Interp] Comment . [facility] Comment on above: No monoclonality det ected. Serum or plasma mannobioside IgG antibody assay by immunoassay (units/volume)Ordered By: Dennis Mcneil on 12-29-2024 Mannobioside IgG IA Qn 32 units 0-100 [facility] Comment on above: Negative: <90 Equivo padma: 90-100 Positive: >100 This test was developed and its performance characteristics determined by [employer]. It has not been cleared or approved by the Food and Drug Administration. The FDA has determined that such clearance or approval is not necessary. Serum or plasma protein basil urement (mass/volume)Ordered By: Dennis Mcneil on 12-29-2024 Protein [Mass/Vol] 7.6 g/dL 6.0-8.5 [facility] Serum or plasma urea nitroge n measurement (mass/volume)Ordered By: Dennis Mcneil on 12-29-2024 Urea nitrogen [Mass/Vol] 14 mg/dL 4-[address] [facility] Serum peanut IgE antibody as say (units/volume)Ordered By: Dennis Mcneil on 12-29-2024 Peanut IgE Qn (S) 0.16 kU/L High Class 0/I [facility] Serum perinuclear neutrophil cytoplasmic antibody titer by immunofluorescenceOrdered By: Dennis Mcneil on 12-29-2024 Neutrophil cytoplasmic Ab.perinuclear IF (S) [Titer] <1:20 titer Neg:<1:[address] [facility] Comment on above: The presence of posi tive fluorescence exhibiting P-ANCA orC-ANCA patterns alone is not specific for the diagnosis ofWegener's Granulomatosis (WG) or microscopic polyangiitis.Decisions about treatment should not be based solely onANCA IFA results. The International ANCA Group Consensusrecommends follow up testing of positive sera with both KS-3 and MPO-ANCA enzyme immunoassays. As many as 5% serumsamples are positive only by EIA. Ref. AM J Clin Quxbca6310;111:507-513. Serum soybean IgE antibody a ssay (units/volume)Ordered By: Dennis Mcneil on 12-29-2024 Soybean IgE Qn (S) <0.10 kU/L Class 0 [facility] Serum tissue transglutaminas e (tTG) IgA antibody assay (units/volume)Ordered By: Dennis Mcneil on 12-29-2024 tTG IgA Qn (S) <2 U/mL 0-[address] [facility] Comment on above: Negative 0 - 3 Weak Positive 4 - 10 Positive >10 Tissue Transglutaminase (tTG) has been identified as the endomysial antigen. Studies have demonstr- ated that endomysial IgA antibodies have over 99% specificity for gluten sensitive enteropathy. Serum wheat IgE antibody ass ay (units/volume)Ordered By: Dennis Mcneil on 12-29-2024 Wheat IgE Qn (S) <0.10 kU/L Class [address] [facility] Sodium levelOrdered By: Allan Mary on 12-29-2024 Sodium [Moles/Vol] 136 mmol/L 133-145 [facility] TSH DL <= 0.005 mIU/L QnOrde red By: Dennis Mcneil on 12-29-2024 TSH Qn 2.960 uIU/mL 0.500-4.[address] [facility] Thyroid Stim Hormone (TSH)on 12-29-2024 TSH 2.960 uIU/mL Normal 0.500-4.[address] [facility] Comment on above: Performed By: #### L 7000.0750, M100.0605, L7000.0300, L7000.0700, M100.7900, M100.637 #### [facility] [place], [address] Total proteinOrdered By: Tavares Mcneil on 12-29-2024 Protein [Mass/Vol] 8.2 g/dL 5.9-8.4 [facility] White blood cell (WBC) count Ordered By: Dennis Mcneil on 12-29-2024 WBC (Bld) [#/Vol] 14.6 10*3/uL High 4[facility]4-11.[facility] Encounter Date Encounter Type Care Provider Facility Start: 01-10-2025 End: 01-10-2025 ambulatory No Primary Care Physician -Laboratory Specimen Start: 01-10-2025 End: 01-10-2025 Patient encounter procedure Dennis Mcneil DO -Laboratory Specimen Work Phone: Start: 01-10-2025 End: 01-10-2025 ambulatory No Primary Care Physician Facility:[facility] Start: 12-29-2024 End: 12-29-2024 ambulatory No Primary Care Physician -Laboratory Start: 12-29-2024 End: 12-29-2024 Patient encounter procedure Dennis Mcneil DO -Laboratory Work Phone: Start: 12-29-2024 End: 12-29-2024 Patient encounter procedure Dennis Mcneil -[facility] Work Phone: Start: 12-29-2024 End: 12-29-2024 ambulatory Dennis Mcneil [facility] Work Phone: Start: 12-29-2024 End: 12-29-2024 ambulatory No Primary Care Physician Facility:[facility] Procedures Date Procedure Procedure Detail Performing Clinician Start: 01-10-2025 Clostridium difficile detection No Primary Care Physician Start: 01-10-2025 Lactoferrin measurement No Primary Care Physician Start: 01-10-2025 Measurement of occul t blood in stool specimen using immunoassay No Primary Care Physician Start: 01-10-2025 Nucleic acid assay No P rimary Care Physician Start: 01-10-2025 Iadna-dna/rna gi pth gn multiplex probe tq 6-11 No Primary Care Physician Start: 12-29-2024 Albumin/Globulin ratio No Primary Care Physician Start: 12-29-2024 Antibody measurement No Primary Care Physician Comment on above: *Additional results available. Contact laboratory/see report*The atypical pANCA pattern has been observed in asignificant percentage of patients with ulcerative colitis,primary sclerosing cholangitis and autoimmune hepatitis. Start: 12-29-2024 Antibody to centrome re measurement No Primary Care Physician Comment on above: Previous reported re sult: TNP AIEdited by: INFHIRA on 01/01/25:0307 AMENDED REPORT 01/01/25 0307 ANTI-CENT B previously reported as: Test not performed Start: 12-29-2024 Antibody to extracta ble nuclear antigen measurement No Primary Care Physician Comment on above: Previous reported re sult: TNP AIEdited by: INFCE on 01/01/25:0307 AMENDED REPORT 01/01/25 0307 LÓPEZ Ab previously reported as: Test not performed Start: 12-29-2024 Antibody to ERIBERTO-1 measurement No Primary Care Physician Comment on above: Previous reported re sult: TNP AIEdited by: INFCE on 01/01/25:0307 AMENDED REPORT 01/01/25306 ANTI-ERIBERTO previously reported as: Test not performed Start: 12-29-2024 Antibody to lupus La protein measurement No Primary Care Physician Start: 12-29-2024 Antibody to SS-A measurement No Primary Care Physician Start: 12-29-2024 Autoantibody measurement No Primary Care Physician Comment on above: Previous reported re sult: TNP AIEdited by: JASWINDER on 01/01/25:0307 AMENDED REPORT 01/01/25 030 ANTICHROMATIN previously reported as: Test not performed Start: 12-29-2024 Endomysial antibody IgA level No Primary Care Physician Start: 12-29-2024 Immunoglobulin M measurement No Primary Care Physician Start: 12-29-2024 In-vitro immunologic test No Primary Care Physician Comment on above: QuantiFERON-TB Gold Plus is a qualitative indirect test forM tuberculosis infection (including disease) and isintended for use in conjunction with risk assessment,radiography, and other medical and diagnostic evaluations.The QuantiFERON-TB Gold Plus result is determined bysubtracting the Nil value from either TB antigen (Ag)value. The Mitogen tube serves as a control for the test. No response to M tub erculosis antigens detected.Infection with M tuberculosis is unlikely, but high riskindividuals should be considered for additional testing(ATS/IDSA/CDC Clinical Practice Guidelines, 2017). Thereference range is an Antigen minus Nil result of <0.35IU/mL.The specimen received for QuantiFERON testing was incubatedby the ordering institution. Specific procedures outlinedin our Directory of Services and in the package insert forthe QuantiFERON Gold (In Tube) test must be followed toenable for proper stimulation of cells for the productionof interferon gamma. Chemiluminescence immunoassaymethodology Start: 12-29-2024 Lymphocyte percent d ifferential count No Primary Care Physician Start: 12-29-2024 Measurement of fungal antibody No Primary Care Physician Comment on above: Negative: <45 Equivo padma: 45-50 Positive: >50 Start: 12-29-2024 VENEER STAPLER antibody measurement No Primary Care Physician Comment on above: Previous reported re sult: TNP AIEdited by: JASWINDER on 01/01/25:0307 AMENDED REPORT 01/01/25306 VENEER STAPLER Ab previously reported as: Test not performed Start: 12-29-2024 Scallop RAST No Primary Care Physician Start: 12-29-2024 Sesame seed RAST No [facility] Care Physician Comment on above: Performed at: [address] [id number] Director: Johnnie Brown PhD, Phone: [phone] at: [facility] [id number] Director: Joslyn Sahu MD, Phone: [phone] Start: 12-29-2024 Shrimp RAST No Primary Care Physician Plan of Treatment Date Care Activity Detail Author Start: 01-10-2025 Giardia Antigen (JUANJO) Giardia Antigen (JUANJO) [facility] Start: 01-10-2025 Ova and Parasites Ova and Parasites [facility] Start: 01-10-[address] [facility] Start: 12-29-2024 Angiotensin converting enzyme [Enzymatic activity/volume] in Serum or Plasma [facility] Start: 12-29-2024 Celiac disease screen [facility] Start: 12-29-2024 Gastrin [Mass/volume] in Serum or Plasma [facility] Start: 12-29-2024 Immunoglobulin measurement [facility] Start: 12-29-2024 In-vitro immunologic test [facility] Start: 12-29-[address] [facility] Start: 12-29-2024 Smooth muscle Ab [Presence] in Serum [facility] Start: 12-29-[address] [facility] Albumin [Moles/volum e] in Serum or Plasma [facility] Albumin/Globulin ratio [facility] Chitobioside IgA Ab [Units/volume] in Serum or Plasma by Immunoassay [facility] Clostridioides diffi cile DNA [Presence] in Unspecified specimen by OMAR with probe detection [facility] Elastase.pancreatic [Presence] in Stool [facility] Electrophoresis: [id number] [facility] Electrophoresis: johanna ma globulin [facility] Fat [Presence] in Stool [facility] Giardia lamblia antigen assay [facility] Globulin measurement [facility] IgA [Mass/volume] in Serum or Plasma [facility] IgE [Units/volume] i n Serum or Plasma [facility] IgG [Mass/volume] in Serum or Plasma [facility] IgM [Mass/volume] in Serum or Plasma [facility] Laboratory data interpretation [facility] Lactoferrin [Presenc e] in Stool by Immunoassay [facility] Laminaribioside IgG Ab [Units/volume] in Serum or Plasma by Immunoassay [facility] Mannobioside IgG Ab [Units/volume] in Serum or Plasma by Immunoassay [facility] Measurement of funga l antibody [facility] Measurement of occul t blood in stool specimen using immunoassay [facility] Mycobacterium tuberc ulosis tuberculin stimulated gamma interferon [Presence] in Blood [facility] Neutrophil cytoplasm ic Ab.classic [Units/volume] in Serum [facility] Neutrophil cytoplasm ic Ab.perinuclear.atypical [Titer] in Serum by Immunofluorescence [facility] Nucleic acid assay [facility] Ova OR parasites identification [facility] P-ANCA measurement [facility] Protein electrophore sis panel - Serum or Plasma [facility] Protein measurement [facility] Radionuclide gastric emptying study [facility] Tissue transglutamin ase IgA Ab [Units/volume] in Serum [facility] Payers Date Payer Category Payer Private Health Insurance [id number] 2024 Private Health Insurance [id number] 2024 Self-pay Unknown [id number] Unknown [id number] Unknown [id number] Social History Date Type Detail Facility Tobacco smoking stat [facility] Unknown if ever smoked [facility] Work Phone: Start: 2005 Sex Assigned At Female [facility] Start: 12-29-2024 [facility] Evaluation note 12-29-2024 Note Date & Type Note Facility 12-29-2024 Evaluation note Diagnosis Onset Date Resolution Diarrhea acute December 29 7:34am [facility] Work Phone: Evaluation note Note Date & Type Note Facility Evaluation note No assessment information availa ble [employer] [facility] Work Phone: Reason for referral (narrative) Note Date & Type Note Facility Reason for referral (narrative) No reason for referral information available [facility] Work Phone: Chief Complaint and Reason for Visit Chief Complaint Admit Date DIARRHEA ABDOMINAL PAIN CONSTIPATION Dec 7:34am Chief Complaint Admit Date DIARRHEA ABDOMINAL PAIN CONSTIPATION Dec 7:34am [facility] December 29, 2024 8:39 am Reason for Visit Admit Date Diarrhea December 29, 2024 7:34 am Chief Complaint Admit Date DIARRHEA ABDOMINAL PAIN CONSTIPATION Dec 7:34am [facility] December 29, 2024 8:39 am [facility] January 10, 2025 1:02p m Family History No Family History Records Found Relationship Condition Age at Onset Recorded Date/T eva Not Specified Diabetes mellitus Unknown Alcoholism Unknown Anxiety Unknown Depression Unknown Mental disorder Unknown Malignant neoplasm of breast Unknown Attempted suicide Unknown Malignant neoplasm Unknown Hypertension Unknown Cerebrovascular accident (CVA) Unknown Asthma Unknown Summary Purpose Advance Directives No Advanced Directives Records Found Additional Source Comments Care Teams (unrecognized sec tion and content) Team Status: Inactive Member Role Status Dates Dr. Dennis Mcneil , DO Attending Provider Active Start: December 29, 2024 End: December 29, 2024 Team Status: Active Member Role/Relationship Status Dates No Primary Care Physician Primary Care Provider Active Team Status: Inactive Member Role/Relationship Status Dates Dr. Dennis Mcneil DO Attending Provider Active Start: December 29, 2024 End: December 29, 2024 Team Status: Inactive Member Role/Relationship Status Dates No Primary Care Physician Primary Care Provider Active Start: December 29, 2024 End: December 29, 2024 Dr. Dennis Mcneil DO Attending Provider Active Start: December 29, 2024 End: December 29, 2024 Dr. Dennis Mcneil DO Referring Provider Active Start: December 29, 2024 End: December 29, 2024 Team Status: Inactive Member Role/Relationship Status Dates No Primary Care Physician Primary Care Provider Active Start: January 10, 2025 End: January 10, 2025 Dr. Dennis Mcneil DO Attending Provider Active Start: January 10, 2025 End: January 10, 2025 Dr. Dennis Mcneil DO Referring Provider Active Start: January 10, 2025 End: January 10, 2025 Goals (unrecognized section and content) Goals may be documented in a n alternate sectionGoals may be documented in an alternate sectionGoals may be documented in an alternate section INFORMATION SOURCE (unrecogn ized section and content) DATE CREATED AUTHOR 01/14/2025 [facility] FOR RECORDS PERTAINING TO PATIENTS WHO ARE OR HAVE BEEN ENROLLED IN A CHEMICAL DEPENDENCY/SUBSTANCEABUSE PROGRAM, SOME INFORMATION MAY BE OMITTED. This clinical summary was aggregated from multiple sources. Caution should be exercised in using it in the provision of clinical care. This summary normalizes information from multiple sources, and as a consequence, information in this document may materially change the coding, format and clinical context of patient data. In addition, data may be omitted in some cases. CLINICAL DECISIONS SHOULD BE BASED ON THE PRIMARY CLINICAL RECORDS. [employer] [facility]. provides no warranty or guarantee of the accuracy or completeness of information in this document.
--- OUTSIDE RECORDS SUMMARY | 2025-01-18 21:31 | XMS RPT_ITS | CCD ---
Author Organization [facility] Care Team Providers Care Steam Pan Sponger Name Role Phone Friend Dr. Dennis BECKFORD [...] avocado allergenic extract Drug Allergy 12-30-19 Swelling [facility] (2 sources) Sulfamethoxazole Drug Allergy 12-30-19 [facility] (2 sources) Sulfonamides (Antibiotic) Propensity to adverse reactions 12-30-19 [facility] (2 sources) Trimethoprim Drug Allergy 12-30-19 [facility] (3 sources) cat dander; Translations: [cat dander] Propensity to adverse reactions 12-30-19 Itching [facility] (3 sources) Environmental Allergies: Uncoded; Translations: [Environmental Allergies: Uncoded] Propensity to adverse reactions 12-30-19 Other [facility] (1 source) avocado oil Drug Allergy 12-30-19 [facility] (1 source) Sulfamethoxazole Drug Allergy 12-30-19 [facility] (1 source) Sulfonamides (Antibiotic) Drug allergy (disorder) 12-30-19 [facility] (1 source) Trimethoprim Drug Allergy 12-30-19 [facility] Medications Current Medications Medication Drug [...] [address] 44 ug/g Normal 0-120 [facility] Comment on above: Order Comment: Test( s) 823981-Vlyf, Neutral; 582818-Zqok, Total was developed and its performance characteristics determined by [facility]. It has not been cleared or approved by the Food and Drug Administration. Result Comment: Conc entration Interpretation Follow-Up < 5 - 50 ug/g Normal None >50 -120 ug/g Borderline Re-evaluate in 4-6 weeks >120 ug/g Abnormal Repeat as clinically indicated Performed at: [facility] [address] [id number] Blueprint Developer: Johnnie Brown PhD, Phone: [phone] Performed at: [facility] Lab[address] [id number] Blueprint Developer: Joslyn Sahu MD, Phone: [phone] Performed By: #### L 7000.0750, M100.0605, L7000.0300, L7000.0700, M100.7900, M100.637 #### [facility] [address] [place], [place], [id number] Fecal Fat, Qualitativeon FATS, NEUTRAL Normal Normal . [facility] Comment on above: Order Comment: Test( s) 064333-Nqdb, Neutral; 963099-Ebud, Total was developed and its performance characteristics determined by [facility]. It has not been cleared or approved by the Food and Drug Administration. Result Comment: Norm al (<60 Droplets/HPF) Performed By: #### L 7000.0750, M100.0605, L7000.0300, L7000.0700, M100.7900, M100.637 #### [facility] [address] [place], [place], [address] FATS, TOTAL Increased Normal . [facility] Comment on above: Order Comment: Test( s) 866383-Qgix, Neutral; 298628-Rvyo, Total was developed and its performance characteristics determined by [facility]. It has not been cleared or approved by the Food and Drug Administration. Result Comment: Norm al (<100 Droplets/HPF) Performed By: #### L 7000.0750, M100.0605, L7000.0300, L7000.0700, M100.7900, M100.637 #### [facility] [address] [place], [place], [phone] L7000.0750on 01-13-2025 P ELASTASE,FECA 797 Normal >200 [facility] Comment on above: Result Comment: Resu lt Units: ug Elast./g Severe Pancreatic Insufficiency: <100 Moderate Pancreatic Insufficiency: 100 - 200 Normal: >200 Performed at: - [address] [id number] Blueprint Developer: Joslyn Sahu MD, Phone: [phone] Performed By: #### L 7000.0750, M100.0605, L7000.0300, L7000.0700, M100.7900, M100.637 #### [facility] [address] [place], [place], [id number] ANCAon 01-10-2025 Atypical pANCA <1:20 Normal Neg:<1:20 [facility] Comment on above: Result Comment: The atypical pANCA pattern has been observed in a significant percentage of patients with ulcerative colitis, primary sclerosing cholangitis and autoimmune hepatitis. Performed By: #### L 7000.0750, M100.0605, L7000.0300, L7000.0700, M100.7900, M100.637 #### [facility] [address] [place], [place], [id number] Cytoplasmic Ab <1:20 Normal Neg:<1:20 [facility] Comment on above: Performed By: #### L 7000.0750, M100.0605, L7000.0300, L7000.0700, M100.7900, M100.637 #### [facility] [address] [place], [place], [id number] Perinuclear Ab. <1:20 Normal Neg:<1:20 [facility] Comment on above: Result Comment: The presence of positive fluorescence exhibiting P-ANCA or C-ANCA patterns alone is not specific for the diagnosis of Marie's Granulomatosis (WG) or microscopic polyangiitis. Decisions about treatment should not be based solely on ANCA IFA results. The International ANCA Group Consensus recommends follow up testing of positive sera with both NV- 3 and MPO-ANCA enzyme immunoassays. As many as 5% serum samples are positive only by EIA. Ref. AM J Clin Pathol 1999;111:507-513. Performed By: #### L 7000.0750, M100.0605, L7000.0300, L7000.0700, M100.7900, M100.637 #### [facility] [address] [place], [address] Angiotensin Convert Enzymeon 01-10-2025 ANGIOT-CONV.ENZ 34 U/L Normal 14-82 [facility] Comment on above: Result Comment: Perf ormed at: - [facility] [address] [id number] Blueprint Developer: Johnnie Brown PhD, Phone: [phone] Performed at: - [facility] [address] [id number] Blueprint Developer: Joslyn Sahu MD, Phone: [phone] Performed By: #### L 7000.0750, M100.0605, L7000.0300, L7000.0700, M100.7900, M100.637 #### [facility] [address] [place], [address] Anti-Smooth Muscle ABSon ANTISMOOTH MUSC 5 Units Normal 0-19 [facility] Comment on above: Result Comment: Nega tive 0 - 19 Weak positive 20 - 30 Moderate to strong positive >30 Actin Antibodies are found in 52-85% of patients with autoimmune hepatitis or chronic active hepatitis and in 22% of patients with primary biliary cirrhosis. Performed By: #### L 7000.0750, M100.0605, L7000.0300, L7000.0700, M100.7900, M100.637 #### [facility] [address] [place], [address] Calprotectin stoolOrdered By : Dennis Mcneil on 01-10-2025 Calprotectin stool 44 ug/g 0-120 [facility] Comment on above: Concentration Interp retation Follow-Up< 5 - 50 ug/g Normal None>50 -120 ug/g Borderline Re-evaluate in 4-6 weeks >120 ug/g Abnormal Repeat as clinically indicatedPerformed at: - [facility] [address] [id number] Director: Johnnie Brown PhD, Phone: [phone] at: [facility] LabLaunchBit[address] [id number] Director: Joslyn Sahu MD, Phone: [phone] Celiac Disease Profileon ENDOMYSIAL IGA Negative Normal Negative [facility] Comment on above: Performed By: #### L 7000.0750, M100.0605, L7000.0300, L7000.0700, M100.7900, M100.637 #### [facility] [address] [place], [place], [id number] tTG IGA <2 Normal 0-3 [facility] Comment on above: Result Comment: Nega tive 0 - 3 Weak Positive 4 - 10 Positive >10 Tissue Transglutaminase (tTG) has been identified as the endomysial antigen. Studies have demonstr- ated that endomysial IgA antibodies have over 99% specificity for gluten sensitive enteropathy. Performed By: #### L 7000.0750, M100.0605, L7000.0300, L7000.0700, M100.7900, M100.637 #### [facility] [address] [place], [place], [phone] ENTERIC PATHOGEN PANEL STOOL on 01-10-2025 EP [...] VIBRIO Not Detected Yersinia Not Detected Normal [facility] Comment on above: Performed By: #### L 7000.0750, M100.0605, L7000.0300, L7000.0700, M100.7900, M100.637 #### [facility] [address] [place], [address] Fecal fat detectionOrdered B y: Dennis Friend on 01-10-2025 Fat Ql (Stl) Increased . [facility] Comment on above: Normal (<100 Droplet s/HPF) Gastrin, Serumon 01-10-2025 GASTRIN 18 pg/mL Normal 0-115 [facility] Comment on above: Result Comment: Siem [facility] Immulite 2000 Immunochemiluminometric assay (ICMA) Values obtained with different assay methods or kits cannot be used interchangeably. Results cannot be interpreted as absolute evidence of the presence or absence of malignant disease. Performed By: #### L 7000.0750, M100.0605, L7000.0300, L7000.0700, M100.7900, M100.637 #### [facility] [address] [place], [address] STEPHANIE + Protein Elect, Serumon 01-10-2025 Albumin [Mass/Vol] 3.4 g/dL Normal 2.9-4.4 [facility] Comment on above: Order Comment: N Performed By: #### L 7000.0750, M100.0605, L7000.0300, L7000.0700, M100.7900, M100.637 #### [facility] [address] [place], [address] Albumin/Globulin [Mass ratio] 0.9 {ratio} Normal 0.7-1.7 [facility] Comment on above: Order Comment: N Performed By: #### L 7000.0750, M100.0605, L7000.0300, L7000.0700, M100.7900, M100.637 #### [facility] [address] [place], [address] JYGMP-9-YAVC 0.4 g/dL Normal 0.0-0.4 [facility] Comment on above: Order Comment: N Performed By: #### L 7000.0750, M100.0605, L7000.0300, L7000.0700, M100.7900, M100.637 #### [facility] [address] [place], [address] ZDYMQ-3-COYT 1.1 g/dL High 0.4-1.0 [facility] Comment on above: Order Comment: N Performed By: #### L 7000.0750, M100.0605, L7000.0300, L7000.0700, M100.7900, M100.637 #### [facility] [address] [place], [address] BETA GLOBULIN 1.5 g/dL High 0.7-1.3 [facility] Comment on above: Order Comment: N Performed By: #### L 7000.0750, M100.0605, L7000.0300, L7000.0700, M100.7900, M100.637 #### [facility] [address] [place], [address] GAMMA GLOBULIN 1.2 g/dL Normal 0.4-1.8 [facility] Comment on above: Order Comment: N Performed By: #### L 7000.0750, M100.0605, L7000.0300, L7000.0700, M100.7900, M100.637 #### [facility] [address] [place], [address] Globulin (S) [Mass/Vol] 4.2 g/dL Abnormal 2.2-3.9 [facility] Comment on above: Order Comment: N Performed By: #### L 7000.0750, M100.0605, L7000.0300, L7000.0700, M100.7900, M100.637 #### [facility] [address] [place], [address] STEPHANIE RESULT,S Comment Normal . [facility] Comment on above: Order Comment: N Result Comment: No m onoclonality detected. Performed By: #### L 7000.0750, M100.0605, L7000.0300, L7000.0700, M100.7900, M100.637 #### [facility] [address] [place], [address] IMMUNOGLOB A QN 87 mg/dL Normal 87-352 [facility] Comment on above: Order Comment: N Performed By: #### L 7000.0750, M100.0605, L7000.0300, L7000.0700, M100.7900, M100.637 #### [facility] [address] [place], [address] IMMUNOGLOB G QN 1231 mg/dL Normal 719-1475 [facility] Comment on above: Order Comment: N Performed By: #### L 7000.0750, M100.0605, L7000.0300, L7000.0700, M100.7900, M100.637 #### [facility] [address] [place], [address] IMMUNOGLOB M QN 52 mg/dL Low 58-230 [facility] Comment on above: Order Comment: N Performed By: #### L 7000.0750, M100.0605, L7000.0300, L7000.0700, M100.7900, M100.637 #### [facility] [address] [place], [address] M-Matthew Not Observed Normal Not Observed [facility] Comment on above: Order Comment: N Performed By: #### L 7000.0750, M100.0605, L7000.0300, L7000.0700, M100.7900, M100.637 #### [facility] [address] [place], [address] NOTE: Comment Normal . [facility] Comment on above: Order Comment: N Result Comment: Prot ein electrophoresis scan will follow via computer, mail, or terminal press operator delivery. Performed By: #### L 7000.0750, M100.0605, L7000.0300, L7000.0700, M100.7900, M100.637 #### [facility] [address] [place], [address] Protein [Mass/Vol] 7.6 g/dL Normal 6.0-8.5 [facility] Comment on above: Order Comment: N Performed By: #### L 7000.0750, M100.0605, L7000.0300, L7000.0700, M100.7900, M100.637 #### [facility] [address] [place], [address] Immunoglobulins G/A/M/Jose IMMUNOGLOB E QN 329 IU/mL Normal 6-495 [facility] Comment on above: Order Comment: N Performed By: #### L 7000.0750, M100.0605, L7000.0300, L7000.0700, M100.7900, M100.637 #### [facility] [address] [place], [address] L2100.0000on 01-10-2025 ACCA 6 units Normal 0-90 [facility] Comment on above: Result Comment: Nega tive: <80 Equivocal: 80-90 Positive: >90 Performed By: #### L 7000.0750, M100.0605, L7000.0300, L7000.0700, M100.7900, M100.637 #### [facility] [address] [place], [address] ALCA 17 units Normal 0-60 [facility] Comment on above: Result Comment: Nega tive:<55 Equivocal: 55-60 Positive: >60 Performed By: #### L 7000.0750, M100.0605, L7000.0300, L7000.0700, M100.7900, M100.637 #### [facility] [address] [place], [address] AMCA 32 units Normal 0-100 [facility] Comment on above: Result Comment: Nega tive: <90 Equivocal: 90-100 Positive: >100 This test was developed and its performance characteristics determined by [employer]. It has not been cleared or approved by the Food and Drug Administration. The FDA has determined that such clearance or approval is not necessary. Performed By: #### L 7000.0750, M100.0605, L7000.0300, L7000.0700, M100.7900, M100.637 #### [facility] [address] [place], [place], [address] Atypical pANCA Negative Normal Negative [facility] Comment on above: Performed By: #### L 7000.0750, M100.0605, L7000.0300, L7000.0700, M100.7900, M100.637 #### [facility] [address] [place], [place], [id number] COMMENT Comment Normal . [facility] Comment on above: Result Comment: Abigail susanne is not suggestive of Inflammatory Bowel Disease Performed By: #### L 7000.0750, M100.0605, L7000.0300, L7000.0700, M100.7900, M100.637 #### [facility] [address] [place], [address] Rebeca 7 units Normal 0-50 [facility] Comment on above: Result Comment: Nega tive: <45 Equivocal: 45-50 Positive: >50 Performed By: #### L 7000.0750, M100.0605, L7000.0300, L7000.0700, M100.7900, M100.637 #### [facility] [address] [place], [address] No Panel InformationOrdered By: Dennis Mcneil on 01-10-2025 Stool Neutral Fats Normal . [facility] Comment on above: Normal (<60 Droplets /HPF) Quantiferon TB-Gold+on 01-10 QFT MITOGEN OCHOA > 10.00 Normal . [facility] Comment on above: Performed By: #### L 7000.0750, M100.0605, L7000.0300, L7000.0700, M100.7900, M100.637 #### [facility] [address] [place], [address] QFT NIL VALUE 0.03 IU/mL Normal . [facility] Comment on above: Performed By: #### L 7000.0750, M100.0605, L7000.0300, L7000.0700, M100.7900, M100.637 #### [facility] [address] [place], [address] QFT TB GOLD+ Comment Normal . [facility] Comment on above: Result Comment: Jeremiah [...] 7000.0750, M100.0605, L7000.0300, L7000.0700, M100.7900, M100.637 #### [facility] [address] [place], [address] QFT TB POS CRIT Negative Normal Negative [facility] Comment on above: Result Comment: No [...] 7000.0750, M100.0605, L7000.0300, L7000.0700, M100.7900, M100.637 #### [facility] [address] [place], [address] QFT TB1+ AG OCHOA 0.03 IU/mL Normal . [facility] Comment on above: Performed By: #### L 7000.0750, M100.0605, L7000.0300, L7000.0700, M100.7900, M100.637 #### [facility] [address] [place], [address] QFT TB2+ AG OCHOA 0.02 IU/mL Normal . [facility] Comment on above: Performed By: #### L 7000.0750, M100.0605, L7000.0300, L7000.0700, M100.7900, M100.637 #### [facility] [address] [place], [place], [address] Stool Lactoferrin/WBCon 07-0 WBCST Normal Reference Ran ge = Negative Fecal WBC Lactoferrin Negative: No Fecal WBC Lactoferrin present Normal [facility] Comment on above: Performed By: #### L 7000.0750, M100.0605, L7000.0300, L7000.0700, M100.7900, M100.637 #### [facility] [address] [place], [address] Stool Occult Blood iFOBon STOB Negative Normal [facility] Comment on above: Performed By: #### L 7000.0750, M100.0605, L7000.0300, L7000.0700, M100.7900, M100.637 #### [facility] [address] [place], [address] Stool gastrointestinal hemog lobin detection by immunologic methodOrdered By: Dennis Mcneil on 01-10-2025 Lower GI hemoglobin IA Ql (Stl) [facility] Stool lactoferrin detection by immunoassayOrdered By: Dennis Mcneil on 01-10-2025 Lactoferrin IA Ql (Stl) [facility] Stool pancreatic elastase me asurement (mass/mass)Ordered By: Dennis Mcneil on 01-10-2025 Elastase.pancreatic (Stl) [Mass/Mass] 797 >200 [facility] Comment on above: Result Units: ug Milli st./g Severe Pancreatic Insufficiency: <100 Moderate Pancreatic Insufficiency: 100 - 200 Normal: >200Performed at: BN - [facility] [address] [id number] Director: Joslyn Sahu MD, Phone: [phone] MARY Comprehensive Panelon ANTI-DNA (DS)AB 1 IU/mL Normal 0-9 [facility] Comment on above: Result Comment: Nega tive <5 Equivocal 5 - 9 Positive >9 Performed By: #### L 101.9900, L5500.0410, L3300.1800, L501.6710, L3100.3425, L3400.8000, L503.6150, L501.9985, L503.6550, L3300.1200, L3200.1100, L100.0100, L504.2610, L3410.2400, L803.2200, L500.4050, L2100.0000, L501.9520, L3100.5440, L3100.6900 #### [facility] [address] [place], [place], [address] ANTI-SS-A < 0.2 Normal 0.0-0.9 [facility] Comment on above: Performed By: #### L 101.9900, L5500.0410, L3300.1800, L501.6710, L3100.3425, L3400.8000, L503.6150, L501.9985, L503.6550, L3300.1200, L3200.1100, L100.0100, L504.2610, L3410.2400, L803.2200, L500.4050, L2100.0000, L501.9520, L3100.5440, L3100.6900 #### [facility] [address] [place], [address] ANTI-SS-B < 0.2 Normal 0.0-0.9 [facility] Comment on above: Performed By: #### L 101.9900, L5500.0410, L3300.1800, L501.6710, L3100.3425, L3400.8000, L503.6150, L501.9985, L503.6550, L3300.1200, L3200.1100, L100.0100, L504.2610, L3410.2400, L803.2200, L500.4050, L2100.0000, L501.9520, L3100.5440, L3100.6900 #### [facility] [address] [place], [place], [id number] Allergen, Food Profileon CLAM <0.10 Normal Class 0 [facility] Comment on above: Performed By: #### L 7000.0750, M100.0605, L7000.0300, L7000.0700, M100.7900, M100.637 #### [facility] [address] [place], [place], [address] CODFISH <0.10 Normal Class 0 [facility] Comment on above: Performed By: #### L 7000.0750, M100.0605, L7000.0300, L7000.0700, M100.7900, M100.637 #### [facility] [address] [place], [place], [address] COMMENT Comment Normal . [facility] Comment on above: Result Comment: Kristofer [...] 7000.0750, M100.0605, L7000.0300, L7000.0700, M100.7900, M100.637 #### [facility] [address] [place], [place], [id number] CORN <0.10 Normal Class 0 [facility] Comment on above: Performed By: #### L 7000.0750, M100.0605, L7000.0300, L7000.0700, M100.7900, M100.637 #### [facility] [address] [place], [address] EGG, WHITE <0.10 Normal Class 0 [facility] Comment on above: Performed By: #### L 7000.0750, M100.0605, L7000.0300, L7000.0700, M100.7900, M100.637 #### [facility] [address] [place], [place], [id number] MILK (COW) <0.10 Normal Class 0 [facility] Comment on above: Performed By: #### L 7000.0750, M100.0605, L7000.0300, L7000.0700, M100.7900, M100.637 #### [facility] [address] [place], [place], [id number] PEANUT 0.16 kU/L Abnormal Class 0/I [facility] Comment on above: Performed By: #### L 7000.0750, M100.0605, L7000.0300, L7000.0700, M100.7900, M100.637 #### [facility] [address] [place], [place], [id number] SCALLOP <0.10 Normal Class 0 [facility] Comment on above: Performed By: #### L 7000.0750, M100.0605, L7000.0300, L7000.0700, M100.7900, M100.637 #### [facility] [address] [place], [place], [id number] SESAME SEED <0.10 Normal Class 0 [facility] Comment on above: Result Comment: Perf ormed at: [facility] Lab[address] [id number] Blueprint Developer: Johnnie Brown PhD, Phone: [phone] Performed at: [facility] [address] [id number] Blueprint Developer: Joslyn Sahu MD, Phone: [phone] Performed By: #### L 7000.0750, M100.0605, L7000.0300, L7000.0700, M100.7900, M100.637 #### [facility] [address] [place], [place], [id number] SHRIMP <0.10 Normal Class 0 [facility] Comment on above: Performed By: #### L 7000.0750, M100.0605, L7000.0300, L7000.0700, M100.7900, M100.637 #### [facility] [address] [place], [place], [id number] SOYBEAN <0.10 Normal Class 0 [facility] Comment on above: Performed By: #### L 7000.0750, M100.0605, L7000.0300, L7000.0700, M100.7900, M100.637 #### [facility] [address] [place], [place], [id number] WALNUT,(Food) <0.10 Normal Class 0 [facility] Comment on above: Performed By: #### L 7000.0750, M100.0605, L7000.0300, L7000.0700, M100.7900, M100.637 #### [facility] [address] [place], [address] WHEAT <0.10 Normal Class 0 [facility] Comment on above: Performed By: #### L 7000.0750, M100.0605, L7000.0300, L7000.0700, M100.7900, M100.637 #### [facility] [address] [place], [place], [id number] Absolute lymphocyte countOrd ered By: Dennis Mcneil on 12-29-2024 Lymphocytes Auto (Unsp spec) [#/Vol] 4.51 10*3/uL 0.83-4.51 [facility] Absolute neutrophil countOrd ered By: Dennis Mcneil on 12-29-2024 Neutrophils (Bld) [#/Vol] 9.3 10*3/uL High 2.0-7.7 [facility] Albumin Elph [Mass/Vol]Order ed By: Dennis Mcneil on 12-29-2024 Albumin [Mass/Vol] 3.4 g/dL 2.9-4.4 [facility] Anion gap in Serum or Plasma Ordered By: Dennis Mcneil on 12-29-2024 Anion gap [Moles/Vol] 15 mmol/L 5- [facility] Automated lymphocyte count a s percentage of total leukocytesOrdered By: Dennis Mcneil on 12-29-2024 Lymphocytes/100 WBC Auto (Unsp spec) 30.9 % - [facility] BUN/creatinine ratioOrdered By: Dennissarah Mcneil on 12-29-2024 Urea nitrogen/Creatinine [Mass ratio] 15.5 mg/mg 10- [facility] Basophil percentageOrdered B y: Dennis Mcneil on 12-29-2024 Basophils/100 WBC (Bld) 0.3 % 0-1 [facility] Bilirubin, totalOrdered By: Dennisfranklin Mcneil on 12-29-2024 Bilirubin [Mass/Vol] 0.32 mg/dL 0.00-1.[address] [facility] CBC W/Diff, Automatedon 12-06 ATYPICAL LYMPH 1+ Normal [facility] Comment on above: Performed By: #### L 101.9900, L5500.0410, L3300.1800, L501.6710, L3100.3425, L3400.8000, L503.6150, L501.9985, L503.6550, L3300.1200, L3200.1100, L100.0100, L504.2610, L3410.2400, L803.2200, L500.4050, L2100.0000, L501.9520, L3100.5440, L3100.6900 #### [facility] [address] [place], [address] PLT EST SLT INC Normal ADEQ [facility] Comment on above: Performed By: #### L 101.9900, L5500.0410, L3300.1800, L501.6710, L3100.3425, L3400.8000, L503.6150, L501.9985, L503.6550, L3300.1200, L3200.1100, L100.0100, L504.2610, L3410.2400, L803.2200, L500.4050, L2100.0000, L501.9520, L3100.5440, L3100.6900 #### [facility] [address] [place], [address] CRPon 12-29-2024 C-REACTIVE PROT 34.60 mg/L High 0.0-3.0 [facility] Comment on above: Performed By: #### L 7000.0750, M100.0605, L7000.0300, L7000.0700, M100.7900, M100.637 #### [facility] [address] [place], [place], [id number] Carbon dioxide, total [Moles /volume] in Central venous bloodOrdered By: Dennis Mcneil on 12-29-2024 CO2 [Moles/Vol] 20.3 mmol/L Low 21.0-32.0 [facility] Chitobioside IgA antibody as sayOrdered By: Dennis Mcneil on 12-29-2024 Chitobioside IgA IA Qn 6 units 0-90 [facility] Comment on above: Negative: <80 Equivo padma: 80-90 Positive: >90 Chloride assayOrdered By: Ra franklin Mcneil on 12-29-2024 Chloride [Moles/Vol] 101 mmol/L 98-[address] [facility] Comprehensive Metabolic Prof ilon 12-29-2024 Albumin [Mass/Vol] 4.2 g/dL Normal 3.5-5.0 [facility] Comment on above: Performed By: #### L 7000.0750, M100.0605, L7000.0300, L7000.0700, M100.7900, M100.637 #### [facility] [address] [place], [address] Albumin/Globulin [Mass ratio] 1.1 {ratio} Normal 0.9-2.4 [facility] Comment on above: Performed By: #### L 7000.0750, M100.0605, L7000.0300, L7000.0700, M100.7900, M100.637 #### [facility] [address] [place], [address] ALK PHOS 172 U/L High 35-104 [facility] Comment on above: Performed By: #### L 7000.0750, M100.0605, L7000.0300, L7000.0700, M100.7900, M100.637 #### [facility] [address] [place], [address] ALT [Catalytic activity/Vol] 13 U/L Normal <=34 [facility] Comment on above: Performed By: #### L 7000.0750, M100.0605, L7000.0300, L7000.0700, M100.7900, M100.637 #### [facility] [address] [place], [address] AST [Catalytic activity/Vol] 18 U/L Normal <=31 [facility] Comment on above: Performed By: #### L 7000.0750, M100.0605, L7000.0300, L7000.0700, M100.7900, M100.637 #### [facility] [address] [place], [address] Bilirubin [Mass/Vol] 0.32 mg/dL Normal 0.00-1.[address] [facility] Comment on above: Performed By: #### L 7000.0750, M100.0605, L7000.0300, L7000.0700, M100.7900, M100.637 #### [facility] [address] [place], [address] BUN/CRE 15.5 RATIO Normal 10-20 [facility] Comment on above: Performed By: #### L 7000.0750, M100.0605, L7000.0300, L7000.0700, M100.7900, M100.637 #### [facility] [address] [place], [address] Calcium [Mass/Vol] 10.0 mg/dL Normal 7.6-11.0 [facility] Comment on above: Performed By: #### L 7000.0750, M100.0605, L7000.0300, L7000.0700, M100.7900, M100.637 #### [facility] [address] [place], [address] Chloride [Moles/Vol] 101 mmol/L Normal 98-[address] [facility] Comment on above: Performed By: #### L 7000.0750, M100.0605, L7000.0300, L7000.0700, M100.7900, M100.637 #### [facility] [address] [place], [address] CO2 [Moles/Vol] 20.3 mmol/L Low 21.0-32.0 [facility] Comment on above: Performed By: #### L 7000.0750, M100.0605, L7000.0300, L7000.0700, M100.7900, M100.637 #### [facility] [address] [place], [address] Creatinine [Mass/Vol] 0.87 mg/dL Normal 0.70-1.20 [facility] Comment on above: Performed By: #### L 7000.0750, M100.0605, L7000.0300, L7000.0700, M100.7900, M100.637 #### [facility] [address] [place], [address] GAP 15 Normal 5-15 [facility] Comment on above: Performed By: #### L 7000.0750, M100.0605, L7000.0300, L7000.0700, M100.7900, M100.637 #### [facility] [address] [place], [address] GFR/1.73 sq M.predicted among non-blacks MDRD (S/P/Bld) [Vol rate/Area] 99 mL/min/{1.73_m2} Normal >60 [facility] Comment on above: Result Comment: mL/m in/1.73m2 CKD-EPI Creatinine Equation (2020) Performed By: #### L 7000.0750, M100.0605, L7000.0300, L7000.0700, M100.7900, M100.637 #### [facility] [address] [place], [address] Globulin (S) [Mass/Vol] 4.0 g/dL Normal 2.2-4.2 [facility] Comment on above: Performed By: #### L 7000.0750, M100.0605, L7000.0300, L7000.0700, M100.7900, M100.637 #### [facility] [address] [place], [address] Glucose [Mass/Vol] 101 mg/dL High 70-99 [facility] Comment on above: Performed By: #### L 7000.0750, M100.0605, L7000.0300, L7000.0700, M100.7900, M100.637 #### [facility] [address] [place], [address] Potassium [Moles/Vol] 4.0 mmol/L Normal 3.3-5.1 [facility] Comment on above: Performed By: #### L 7000.0750, M100.0605, L7000.0300, L7000.0700, M100.7900, M100.637 #### [facility] [address] [place], [address] Sodium [Moles/Vol] 136 mmol/L Normal 133-145 [facility] Comment on above: Performed By: #### L 7000.0750, M100.0605, L7000.0300, L7000.0700, M100.7900, M100.637 #### [facility] [address] [place], [address] T PROT 8.2 g/dL Normal 5.9-8.4 [facility] Comment on above: Performed By: #### L 7000.0750, M100.0605, L7000.0300, L7000.0700, M100.7900, M100.637 #### [facility] [address] [place], [address] Urea nitrogen [Mass/Vol] 14 mg/dL Normal 4-19 [facility] Comment on above: Performed By: #### L 7000.0750, M100.0605, L7000.0300, L7000.0700, M100.7900, M100.637 #### [facility] [address] [place], [address] Eosinophil percentageOrdered By: Dennis Friend on 12-29-2024 Eosinophils/100 WBC (Bld) 0.3 % 0-5 [facility] Erythrocyte Sed Rateon 12-29 SED RATE 45 mm/hr High 0-30 [facility] Comment on above: Performed By: #### L 101.9900, L5500.0410, L3300.1800, L501.6710, L3100.3425, L3400.8000, L503.6150, L501.9985, L503.6550, L3300.1200, L3200.1100, L100.0100, L504.2610, L3410.2400, L803.2200, L500.4050, L2100.0000, L501.9520, L3100.5440, L3100.6900 #### [facility] [address] [place], [place], [id number] Erythrocyte distribution wid th ratioOrdered By: Dennis Friend on 12-29-2024 Erythrocyte distribution width (RBC) [Ratio] 13.3 % 11.6-14.6 [facility] Erythrocyte distribution wid th standard deviationOrdered By: Dennis Friend on 12-29-2024 Erythrocyte distribution width (RBC) [Ratio] 39.5 fl 35.1-43.9 [facility] Erythrocyte sedimentation ra teOrdered By: Dennis Friend on 12-29-2024 ESR (Bld) [Velocity] 45 mm/h High 0-[address] [facility] Ferritinon 12-29-2024 Ferritin [Mass/Vol] 67 ng/mL Normal 22-378 [facility] Comment on above: Performed By: #### L 7000.0750, M100.0605, L7000.0300, L7000.0700, M100.7900, M100.637 #### [facility] [address] [place], [place], [address] Gastrin, serumOrdered By: Ra reid Friend on 12-29-2024 Gastrin [Mass/Vol] 18 pg/mL 0-115 [facility] Comment on above: Siemens Immulite 200 0 Immunochemiluminometric assay (ICMA)Values obtained with different assay methods or kits cannotbe used interchangeably. Results cannot be interpreted asabsolute evidence of the presence or absence of malignantdisease. Gastroenterology Visit Repor ton 12-29-2024 Gastroenterology Visit Report [facility]astroenterology [address] [place] [address] OFFICE VISIT Date of Service: 12/29/24 MR#: [id number] Acct: [id number] Name: JEWEL SALAZAR ([facility]) Rep #: [id number] : 2005 Provider: Dennis Mcneil, Age/Sex: 19/F Location: [facility] Status: Signed Intake Intake Visit Reasons: DIARRHEA [...] and is going off to college in [place]. She has had well wart before. Nobody [...] for inattentivene (more content not included)... Normal [facility] Glomerular filtration rate ( GFR) estimation/1.73 sq m using serum, plasma, or whole bOrdered By: Dennis Mcneil on 12-29-2024 GFR/1.73 sq M.predicted among non-blacks MDRD (S/P/Bld) [Vol rate/Area] 99 mL/min/{1.73_m2} >60 [facility] Comment on above: mL/min/1.73m2 CKD-EP I Creatinine Equation (2020) Hematocrit Auto (Bld) [Volum e fraction]Ordered By: Dennis Mcneil on 12-29-2024 Hematocrit (Bld) [Volume fraction] 36.9 % Low 37-47 [facility] Hemoglobin A1con 12-29-2024 HbA1c (Bld) [Mass fraction] 6.3 % High <=5.6 [facility] Comment on above: Result Comment: Norm al < 5.7 % Prediabetic 5.7 - 6.4 % Diabetic >or= 6.5 % Please note range changes. Performed By: #### L 101.9900, L5500.0410, L3300.1800, L501.6710, L3100.3425, L3400.8000, L503.6150, L501.9985, L503.6550, L3300.1200, L3200.1100, L100.0100, L504.2610, L3410.2400, L803.2200, L500.4050, L2100.0000, L501.9520, L3100.5440, L3100.6900 #### [facility] [address] [place], [place], [id number] Hemoglobin A1c percentageOrd ered By: Dennis Mcneil on 12-29-2024 HbA1c (Bld) [Mass fraction] 6.3 % High <5.7 [facility] Comment on above: Normal < 5.7 % Predi abetic 5.7 - 6.4 % Diabetic >or= 6.5 % Please note range changes. Hemoglobin measurementOrdere d By: Dennis Mcneil on 12-29-2024 Hemoglobin (Bld) [Mass/Vol] 12.2 g/dL 12.0-15.0 [facility] IgEOrdered By: Dennis Streeter d on 12-29-2024 IgE 329 IU/mL 6-495 [facility] Immature granulocytes/100 WB C Auto (Bld)Ordered By: Dennis Mcneil on 12-29-2024 Immature granulocytes/100 WBC (Bld) 0.400 % 0.0-0.9 [facility] Comment on above: IG% - Immature Granu locytes (promyelocytes, myelocytes and metamyelocytes) > 1% indicates that a LEFT SHIFT is Present. Interpretation of serum or p lasma protein pattern by immunofixation (narrative resultOrdered By: Dennis Mcneil on 12-29-2024 Protein Fractions Immunofixation Ricardo [Interp] Not Observed g/dL Not Observed [facility] Ironon 12-29-2024 Iron [Mass/Vol] 47 ug/dL Low 50-170 [facility] Comment on above: Performed By: #### L 7000.0750, M100.0605, L7000.0300, L7000.0700, M100.7900, M100.637 #### [facility] [address] [place], [address] Iron measurement (mass/mass) Ordered By: Dennis Mcneil on 12-29-2024 Iron (Unsp spec) [Mass/Mass] 47 ug/dL Low 50-170 [facility] LDHon 12-29-2024 LDH 155 U/L Normal 84-246 [facility] Comment on above: Order Comment: 1 Performed By: #### L 7000.0750, M100.0605, L7000.0300, L7000.0700, M100.7900, M100.637 #### [facility] [address] [place], [address] Laboratory - Chemistry and C hemistry - challengeOrdered By: Dennis Mcneil on 12-29-2024 AST [Catalytic activity/Vol] 18 U/L <32 [facility] Laboratory - Miscellaneous t estsOrdered By: Dennis Mcneil on 12-29-2024 Laboratory comment Ricardo (Report) Comment . [facility] Comment on above: Pattern is not sugge stive of Inflammatory Bowel Disease Service comment (Unsp spec) [Interp] Comment . [facility] Comment on above: Levels of Specific [...] 12-29-2024 LDH [Catalytic activity/Vol] 155 U/L 84-246 [facility] Laminaribioside carbohydrate IgG antibody assayOrdered By: Dennis Mcneil on 12-29-2024 Laminaribioside IgG IA Qn 17 units 0-60 [facility] Comment on above: Negative:<55 Equivoc al: 55-60 Positive: >60 MCV (mean corpuscular volume ) determinationOrdered By: Dennis Mcneil on 12-29-2024 MCV (RBC) [Entitic vol] 81.6 fL 81-99 [facility] Mean corpuscular hemoglobin (MCH) determinationOrdered By: Dennis Mcneil on 12-29-2024 MCH (RBC) [Entitic mass] 27.0 pg 27.0-32.0 [facility] Mean corpuscular hemoglobin concentration (MCHC) determinationOrdered By: Dennis Mcneil on 12-29-2024 MCHC (RBC) [Mass/Vol] 33.1 g/dL 32-36 [facility] Mean platelet volume determi nationOrdered By: Dennis Mcneil on 12-29-2024 Platelet mean volume (Bld) [Entitic vol] 10.1 fL 6.2-12.0 [facility] Monocyte percentageOrdered B y: Dennis Mcneil on 12-29-2024 Monocytes/100 WBC (Bld) 4.5 % 0-10 [facility] Neutrophil percentageOrdered By: Dennis Mcneil on 12-29-2024 Neutrophils/100 WBC (Bld) 63.6 % 47-70 [facility] No Panel InformationOrdered By: Dennis Mcneil on 12-29-2024 Addendum Document Comment . [facility] Comment on above: Protein electrophore sis scan will follow via computer,mail, or terminal press operator delivery. Nucleated red blood cell per centageOrdered By: Dennis Mcneil on 12-29-2024 Nucleated RBC/100 WBC (Bld) [Ratio] 0 % 0-5 [facility] Platelet countOrdered By: Ra franklin Mcneil on 12-29-2024 Platelets (Bld) [#/Vol] 476 10*3/uL High 150-450 [facility] Platelet estimateOrdered By: Dennis Mcneil on 12-29-2024 Platelets LM Ql (Bld) SLT INC ADEQ [facility] Potassium measurement (mass/ volume)Ordered By: Dennis Mcneil on 12-29-2024 Potassium (Unsp spec) [Mass/Vol] 4.0 mmol/L 3.3-5.1 [facility] Qualitative QuantiFERON-TB g old in tube testOrdered By: Dennis Mcneil on 12-29-2024 M. tuberculosis tuberculin stim IFN-g Ql (Bld) 0.03 IU/mL . [facility] RBC Auto (Bld) [#/Vol]Ordere d By: Dennis Mcneil on 12-29-2024 RBC (Bld) [#/Vol] 4.52 10*6/uL 4.2-5.4 [facility] Serum DNA double strand anti body assay (units/volume)Ordered By: Dennis Mcniel on 12-29-2024 DNA double strand Ab Qn (S) 1 [IU]/mL 0-9 [facility] Comment on above: Negative <5 Equivoca l 5 - 9 Positive >9 Serum Scl-70 antibody assay (units/volume)Ordered By: Dennis Mcneil on 12-29-2024 SCL-70 extractable nuclear Ab Qn (S) <0.2 AI 0.0-0.9 [facility] Comment on above: Previous reported re sult: TNP AIEdited by: JASWINDER on 01/01/25:0307 AMENDED REPORT 01/01/25306 ANTISCLER previously reported as: Test not performed Serum black walnut IgE antib aisha assay (units/volume)Ordered By: Dennis Mcneil on 12-29-2024 Black [place] IgE Qn (S) <0.10 kU/L Class 0 [facility] Serum clam IgE antibody assa y (units/volume)Ordered By: Dennis Mcneil on 12-29-2024 Clam IgE Qn (S) <0.10 kU/L Class 0 [facility] Serum classic neutrophil cyt oplasmic antibody assay (units/volume)Ordered By: Dennis Mcneil on 12-29-2024 Neutrophil cytoplasmic Ab.classic Qn (S) <1:20 titer Neg:<1:20 [facility] Serum codfish IgE antibody a ssay (units/volume)Ordered By: Dennis Mcneil on 12-29-2024 Codfish IgE Qn (S) <0.10 kU/L Class 0 [facility] Serum corn IgE antibody assa y (units/volume)Ordered By: Dennis Mcneil on 12-29-2024 [place] IgE Qn (S) <0.10 kU/L Class 0 [facility] Serum cow milk IgE antibody assay (units/volume)Ordered By: Dennis Mcneil on 12-29-2024 Cow milk IgE Qn (S) <0.10 kU/L Class 0 [facility] Serum creatinine measurement (mass/volume)Ordered By: Dennis Mcneil on 12-29-2024 Creatinine [Mass/Vol] 0.87 mg/dL 0.70-1.20 [facility] Serum egg white IgE antibody assay (units/volume)Ordered By: Dennis Mcneil on 12-29-2024 Egg white IgE Qn (S) <0.10 kU/L Class [address] [facility] Serum globulin measurementOr dered By: Dennis Mcneil on 12-29-2024 Globulin (S) [Mass/Vol] 4.0 g/dL 2.2-4.2 [facility] Serum globulin measurement ( mass/volume)Ordered By: Dennis Mcneil on 12-29-2024 Globulin (S) [Mass/Vol] 4.2 g/dL High 2.2-3.9 [facility] Serum glucose measurement (m ass/volume)Ordered By: Dennis Mcneil on 12-29-2024 Glucose [Mass/Vol] 101 mg/dL High 70-99 [facility] Serum or plasma C reactive p rotein measurement (mass/volume)Ordered By: Dennis Mcneil on 12-29-2024 CRP [Mass/Vol] 34.60 mg/L High 0.0-3.0 [facility] Serum or plasma IgA measurem ent (mass/volume)Ordered By: Dennistre Mcneil on 12-29-2024 IgA [Mass/Vol] 87 mg/dL 87-352 [facility] Serum or plasma IgG measurem ent (mass/volume)Ordered By: Dennis Mcneil on 12-29-2024 IgG [Mass/Vol] 1231 mg/dL 719-1475 [facility] Serum or plasma actin IgG an tibody assay (units/volume)Ordered By: Dennis Mcneil on 12-29-2024 Actin IgG Qn 5 Units 0-19 [facility] Comment on above: Negative 0 - 19 Weak positive 20 - 30 Moderate to strong positive >30 Actin Antibodies are found in 52-85% of patients with autoimmune hepatitis or chronic active hepatitis and in 22% of patients with primary biliary cirrhosis. Serum or plasma alanine streeter otransferase (ALT) measurementOrdered By: Dennis Mcneil on 12-29-2024 ALT [Catalytic activity/Vol] 13 U/L <35 [facility] Serum or plasma albumin basil urement (mass/volume)Ordered By: Dennis Mcneil on 12-29-2024 Albumin [Mass/Vol] 4.2 g/dL 3.5-5.0 [facility] Serum or plasma albumin/glob ulin mass ratioOrdered By: Dennis Mcneil on 12-29-2024 Albumin/Globulin [Mass ratio] 1.1 {ratio} 0.9-2.4 [facility] Serum or plasma alkaline jovanny sphatase measurementOrdered By: Dennis Mcneil on 12-29-2024 ALP [Catalytic activity/Vol] 172 U/L High 35-104 [facility] Serum or plasma alpha 1 glob ulin measurement by electrophoresis (mass/volume)Ordered By: Dennis Mcneil on 12-29-2024 Alpha 1 globulin Elph [Mass/Vol] 0.4 g/dL 0.0-0.4 [facility] Alpha 1 globulin Elph [Mass/Vol] 1.1 g/dL High 0.4-1.0 [facility] Serum or plasma angiotensin converting enzyme measurement (enzymatic activity/volume)Ordered By: Dennis Mcneil on 12-29-2024 Angiotensin converting enzyme [Catalytic activity/Vol] 34 U/L 14-82 [facility] Comment on above: Performed at: [employer] [facility] [employer] [id number] Director: Johnnie Brown PhD, Phone: [phone] at: [facility] [id number] Director: Joslyn Sahu MD, Phone: [phone] Serum or plasma beta globuli n measurement by electrophoresis (mass/volume)Ordered By: Dennis Mcneil on 12-29-2024 Beta globulin Elph [Mass/Vol] 1.5 g/dL High 0.7-1.3 [facility] Serum or plasma calcium basil urement (mass/volume)Ordered By: Dennis Mcneil on 12-29-2024 Calcium [Mass/Vol] 10.0 mg/dL 7.6-11.0 [facility] Serum or plasma ferritin marcelo surement (mass/volume)Ordered By: Dennis Mcneil on 12-29-2024 Ferritin [Mass/Vol] 67 ng/mL 22-378 [facility] Serum or plasma gamma globul in measurement by electrophoresis (mass/volume)Ordered By: Dennis Mcneil on 12-29-2024 Gamma globulin Elph [Mass/Vol] 1.2 g/dL 0.4-1.8 [facility] Serum or plasma immunoelectr ophoresis interpretation (nominal result)Ordered By: Dennis Mcneil on 12-29-2024 Interpretation IEP [Interp] Comment . [facility] Comment on above: No monoclonality det ected. Serum or plasma mannobioside IgG antibody assay by immunoassay (units/volume)Ordered By: Dennis Mcneil on 12-29-2024 Mannobioside IgG IA Qn 32 units 0-100 [facility] Comment on above: Negative: <90 Equivo padma: 90-100 Positive: >100 This test was developed and its performance characteristics determined by [employer]. It has not been cleared or approved by the Food and Drug Administration. The FDA has determined that such clearance or approval is not necessary. Serum or plasma protein basil urement (mass/volume)Ordered By: Dennis Mcneil on 12-29-2024 Protein [Mass/Vol] 7.6 g/dL 6.0-8.5 [facility] Serum or plasma urea nitroge n measurement (mass/volume)Ordered By: Dennis Mcneil on 12-29-2024 Urea nitrogen [Mass/Vol] 14 mg/dL 4-19 [facility] Serum peanut IgE antibody as say (units/volume)Ordered By: Dennis Mcneil on 12-29-2024 Peanut IgE Qn (S) 0.16 kU/L High Class 0/I [facility] Serum perinuclear neutrophil cytoplasmic antibody titer by immunofluorescenceOrdered By: Dennis Mcneil on 12-29-2024 Neutrophil cytoplasmic Ab.perinuclear IF (S) [Titer] <1:20 titer Neg:<1:20 [facility] Comment on above: The presence of posi tive fluorescence exhibiting P-ANCA orC-ANCA patterns alone is not specific for the diagnosis ofWegener's Granulomatosis (WG) or microscopic polyangiitis.Decisions about treatment should not be based solely onANCA IFA results. The [employer] Consensusrecommends follow up testing of positive sera with both NV-3 and MPO-ANCA enzyme immunoassays. As many as 5% serumsamples are positive only by EIA. Ref. AM J Clin [id number];111:507-513. Serum soybean IgE antibody a ssay (units/volume)Ordered By: Dennis Mcneil on 12-29-2024 Soybean IgE Qn (S) <0.10 kU/L Class 0 [facility] Serum tissue transglutaminas e (tTG) IgA antibody assay (units/volume)Ordered By: Dennis Mcneil on 12-29-2024 tTG IgA Qn (S) <2 U/mL 0-3 [facility] Comment on above: Negative 0 - 3 Weak Positive 4 - 10 Positive >10 Tissue Transglutaminase (tTG) has been identified as the endomysial antigen. Studies have demonstr- ated that endomysial IgA antibodies have over 99% specificity for gluten sensitive enteropathy. Serum wheat IgE antibody ass ay (units/volume)Ordered By: Dennis Mcneil on 12-29-2024 Wheat IgE Qn (S) <0.10 kU/L Class 0 [facility] Sodium levelOrdered By: Allan Mary on 12-29-2024 Sodium [Moles/Vol] 136 mmol/L 133-145 [facility] TSH DL <= 0.005 mIU/L QnOrde red By: Dennis Mcneil on 12-29-2024 TSH Qn 2.960 uIU/mL 0.500-4.30 0 [facility] Thyroid Stim Hormone (TSH)on 12-29-2024 TSH 2.960 uIU/mL Normal 0.500-4.30 0 [facility] Comment on above: Performed By: #### L 7000.0750, M100.0605, L7000.0300, L7000.0700, M100.7900, M100.637 #### [facility] Laboratory [facility] [place], [address] Total proteinOrdered By: Tavares Mcneil on 12-29-2024 Protein [Mass/Vol] 8.2 g/dL 5.9-8.4 [facility] White blood cell (WBC) count Ordered By: Dennis Mcneil on 12-29-2024 WBC (Bld) [#/Vol] 14.6 10*3/uL High 4.4-11.0 [facility] Encounters Encounter Date Encounter Type Care Provider Facility Start: 01-10-2025 End: 01-10-2025 ambulatory No Primary Care Physician -Laboratory Specimen Start: 01-10-2025 End: 01-10-2025 Patient encounter procedure Dennis Mcneil DO -Laboratory Specimen Work Phone: Start: 01-10-2025 End: 01-10-2025 ambulatory No Primary Care Physician Facility:[facility] Start: 12-29-2024 End: 12-29-2024 ambulatory No Primary Care Physician -Laboratory Start: 12-29-2024 End: 12-29-2024 Patient encounter procedure Dennis Mcneil DO -Laboratory Work Phone: Start: 12-29-2024 End: 12-29-2024 Patient encounter procedure Dennis Mcneil -[facility] Work Phone: Start: 12-29-2024 End: 12-29-2024 ambulatory Dennis Mcneil [facility] Work Phone: Start: 12-29-2024 End: 12-29-2024 ambulatory No Primary Care Physician Facility:[facility] Procedures Date Procedure Procedure Detail Performing [...] Equivo padma: 45-50 Positive: >50 Start: 12-29-2024 SAXOPHONE PLAYER antibody measurement No Primary Care Physician Comment on above: Previous reported re sult: TNP AIEdited by: JASWINDER on 01/01/25:0307 AMENDED REPORT 01/01/25306 SAXOPHONE PLAYER Ab previously reported as: Test not performed Start: 12-29-2024 Scallop RAST No Primary Care Physician Start: 12-29-2024 Sesame seed RAST No [facility] Care Physician Comment on above: Performed at: [address] [id number] Director: Johnnie Brown PhD, Phone: [phone] at: [facility] [address] [id number] Director: Joslyn Sahu MD, Phone: [phone] Start: 12-29-2024 Shrimp RAST No Primary Care Physician Plan of Treatment Date Care Activity Detail Author Start: 01-10-2025 Giardia Antigen (JUANJO) Giardia Antigen (JUANJO) [facility] Start: 01-10-2025 Ova and Parasites Ova and Parasites [facility] Start: 01-10-2025 [facility] Start: 12-29-2024 Angiotensin converting enzyme [Enzymatic activity/volume] in Serum or Plasma [facility] Start: 12-29-2024 Celiac disease screen [facility] Start: 12-29-2024 Gastrin [Mass/volume] in Serum or Plasma [facility] Start: 12-29-2024 Immunoglobulin measurement [facility] Start: 12-29-2024 In-vitro immunologic test [facility] Start: 12-29-2024 Serum immunofixation [facility] Start: 12-29-2024 Smooth muscle Ab [Presence] in Serum [facility] Start: 12-29-2024 [facility] Albumin [Moles/volum e] in Serum or Plasma [facility] Albumin/Globulin ratio [facility] Chitobioside IgA Ab [Units/volume] in Serum or Plasma by Immunoassay [facility] Clostridioides diffi cile DNA [Presence] in Unspecified specimen by OMAR with probe detection [facility] Elastase.pancreatic [Presence] in Stool [facility] Electrophoresis: [id number] [facility] Electrophoresis: johanna ma globulin [facility] Fat [Presence] in Stool [facility] Giardia lamblia antigen assay [facility] Globulin measurement [facility] IgA [Mass/volume] in Serum or Plasma [facility] IgE [Units/volume] i n Serum or Plasma [facility] IgG [Mass/volume] in Serum or Plasma [facility] IgM [Mass/volume] in Serum or Plasma [facility] Laboratory data interpretation [facility] Lactoferrin [Presenc e] in Stool by Immunoassay [facility] Laminaribioside IgG Ab [Units/volume] in Serum or Plasma by Immunoassay [facility] Mannobioside IgG Ab [Units/volume] in Serum or Plasma by Immunoassay [facility] Measurement of funga l antibody [facility] Measurement of occul t blood in stool specimen using immunoassay [facility] Mycobacterium tuberc ulosis tuberculin stimulated gamma interferon [Presence] in Blood [facility] Neutrophil cytoplasm ic Ab.classic [Units/volume] in Serum [facility] Neutrophil cytoplasm ic Ab.perinuclear.atypical [Titer] in Serum by Immunofluorescence [facility] Nucleic acid assay [facility] Ova OR parasites identification [facility] P-ANCA measurement [facility] Protein electrophore sis panel - Serum or Plasma [facility] Protein measurement [facility] Radionuclide gastric emptying study [facility] Tissue transglutamin ase IgA Ab [Units/volume] in Serum [facility] Payers Date Payer Category Payer Private Health Insurance [id number] 2024 Private Health Insurance [id number] 2024 Self-pay Unknown [id number] Unknown [id number] Unknown [id number] Social History Date Type Detail Facility Tobacco smoking stat [facility] Unknown if ever smoked [facility] Work Phone: Start: 2005 Sex Assigned At Female [facility] Start: 12-29-2024 [facility] Evaluation note 12-29-2024 Note Date & Type Note Facility 12-29-2024 Evaluation note Diagnosis Onset Date Resolution Diarrhea acute December 29 7:34am [facility] Work Phone: Evaluation note Note Date & Type Note Facility Evaluation note No assessment information availa ble [facility] Work Phone: Reason for referral (narrative) Note Date & Type Note Facility Reason for referral (narrative) No reason for referral information available [facility] Work Phone: Chief Complaint and Reason for [...] 2024 End: December 29, 2024 Dr. Dennis Mnceil DO Attending Provider Active Start: December 29, [...] section and content) DATE CREATED AUTHOR 01/14/2025 [facility] FOR RECORDS PERTAINING TO PATIENTS WHO ARE [...] BE BASED ON THE PRIMARY CLINICAL RECORDS. [employer] [facility]. provides no warranty or guarantee of the accuracy or completeness of information in this document.
== END | disposition home or self-care (01) ==
LOC: NM 12:54
PROVIDERS: PCP Pediatrics; Referring Provider Internal Medicine Gastroenterology; Visit Provider Internal Medicine Gastroenterology
DX: R19.7 Diarrhea, unspecified (principal); R14.0 Abdominal distension (gaseous)
CPT/HCPCS: 78264; A9541

== ENCOUNTER → 2025-01-21 | Outpatient (CLI) | payer OTHER, SELFPAY ==
--- NOTE | 2025-01-21 15:25 | CT_ITS ---
PROCEDURE: ABDOMEN/PELVIS WITH CONTRAST 01/21/2025 REASON FOR EXAM: ABDOMINAL PAIN AND DIARRHEA TECHNIQUE: ABDOMEN/PELVIS WITH CONTRAST Coronal and Sagittal reconstruction series were provided. CONTRAST: Isovue 370 VOLUME: 96 mL One or more dose reduction techniques were used (e.g., Automated exposure control, adjustment of the mA and/or kV according to patient size, use of iterative reconstruction technique. RADIATION DOSE SUMMARY: CTDlvol: 33.75 mGy DLP: 1334.79 mGycm COMPARISON: None. FINDINGS: Lung bases: The lung bases are clear. There are no pleural effusions. The heart size is normal. There is no pericardial effusion. Liver: Normal. Gallbladder: Surgically absent. Spleen: Normal. Pancreas: Normal. Adrenals: Normal. Kidneys: Normal. Bladder: Evacuated. Reproductive Organs: The uterus and ovaries are unremarkable. There is no free fluid in the pelvis. There is no inguinal lymphadenopathy. Bowel: There is stool throughout the colon. The gastrointestinal tract is otherwise unremarkable. Appendix: Normal. Lymph nodes: There are numerous reactive mesenteric lymph nodes. There is no retroperitoneal or pelvic lymphadenopathy. Vasculature: Normal. Peritoneum / Retroperitoneum: There are no abnormal intra or retroperitoneal masses or fluid collections. Bones: Normal. CT/Abdomen/Pelvis WITH Contrast IMPRESSION: 1. Numerous reactive mesenteric lymph nodes, consistent with mesenteric adenit is. This is a usually viral induced self-limited process but can be symptomatic. 2. Mild constipation. 3. Otherwise unremarkable. Reading Location: [place] [address]
== END | disposition home or self-care (01) ==
LOC: CT 15:17
PROVIDERS: PCP Pediatrics; Referring Provider Internal Medicine Gastroenterology; Visit Provider Internal Medicine Gastroenterology
DX: R19.7 Diarrhea, unspecified (principal)
CPT/HCPCS: 74177; Q9967